=== PATIENT | female | born 1965 | race Caucasian/White ===

== ENCOUNTER 2025-04-10 18:34 | Emergency (ER) | payer BC, SELFPAY ==
--- OUTSIDE RECORDS SUMMARY | 2025-04-10 18:40 | XMS_ITS | Encounter Summary ---
Author Organization [facility] Address [address] [facility] [place] [address] Phone Care Team Providers Care Certified Histologic Technician Name Role Phone Darcie Jacobs PAC Primary Care Pro vider Lawrence Thompson MD Unavailable Reason for Visit * Reason Comments Medication Refill Encounter Details Date Type Department Care Team (Late st Contact Info) Description 12/10/2021 [facility]ill [facility] - [facility] Medicine - [place] [address] [place] [address] Darcie Jacobs, PAC [address] [place] [address] Medication Refill Social History Tobacco Use Types Packs/Day Years Used Date Smoking Tobacco: Former Cigarettes Q uit: 02/11/2008 Smokeless Tobacco: Never Alcohol Use Standard Drinks/Week Comments Yes 0 (1 standard drink = 0.6 oz pur e alcohol) socially PHQ-2 Answer Date Recorded Total Score - Questions 1-9 10 12/2021 Sexually Active Control Partners Comments Yes Comments No Sex and Gender Information Value Date Recorded Sex Assigned at Female 12/12/2023 9:44 AM CDT Legal Sex Female 11:59 PM CDT Gender Identity Female 12/12/2023 9:44 AM CDT Sexual Orientation Not on file COVID-19 Exposure Response Date Recorded In the last 10 days, have gaston u been in contact with someone who was confirmed or suspected to have Coronavirus/COVID-19? No / Unsure 12/12/2021 8:10 AM CDT documented as of this encounter Miscellaneous Notes * Telephone Encounter - VogelHannah RN - 12/12/2021 9:49 AM CDT Medication failed the protocol, provider to review and approve the medication order if appropriate. Requested Prescriptions Pending Prescriptions Disp Refills lisinopril (PRINIVIL, ZESTRIL) 20 MG Tablet [Pharmacy Med Name: Lisinopril 20 MG Oral Tablet] 90 Tablet 0 Sig: Take 1 tablet by mouth once daily NOELLE Inhibitors Protocol Failed - 12/10/2021 5:13 AM Failed - Serum potassium on record in past 12 months No results found for: POTASSIUM, POCTK Failed - GFR on record in past 12 months No results found for: GFRNA Passed - Blood pressure on record in past 12 months Clinician-entered: BP Readings from Last 3 Encounters: 12/12/21 120/70 07/27/21 134/82 06/10/21 124/80 Patient-entered: No data recorded Passed - No positive test in the past 12 months or most recent test was negative Passed - Visit with relevant provider in past 12 months or upcoming 90 days Recent Visits Date Type Provider Dept 07/27/21 Office Visit Darcie Jacobs PAC [facility] [place] 06/10/21 [facility] [place] Showing recent visits within past 365 days and meeting all other requirements Today's Visits Date Type Provider Dept 12/12/21 Office Visit Darcie Jacobs PAC [facility] [place] Showing today's visits and meeting all other requirements Future Appointments No visits were found meeting these conditions. Showing future appointments within next 90 days and meeting all other requirements Passed - No active on record triamterene-hydrochlorothiazide (MAXZIDE) 37.5-25 MG Tablet [Pharmacy Med Name: Triamterene-HCTZ 37.5-25 MG Oral Tablet] 90 Tablet 0 Sig: Take 1 tablet by mouth once daily Diuretics Protocol Failed - 12/10/2021 5:13 AM Failed - Serum potassium on record in past 12 months No results found for: POTASSIUM, POCTK Failed - Serum sodium on record in past 12 months No results found for: SODIUM Failed - GFR on record in past 12 months No results found for: GFRNA Passed - Blood pressure on record in past 12 months Clinician-entered: BP Readings from Last 3 Encounters: 12/12/21 120/70 07/27/21 134/82 06/10/21 124/80 Patient-entered: No data recorded Passed - Visit with relevant provider in past 12 months or upcoming 90 days Recent Visits Date Type Provider Dept 07/27/21 Office Visit Darcie Jacobs, PAC [facility] 06/10/21 Office Visit Darcie Jacobs, PAC [facility] Showing recent visits within past 365 days and meeting all other requirements Today's Visits Date Type Provider Dept 12/12/21 Office Visit Darcie Jacobs, PAC [facility] Showing today's visits and meeting all other requirements Future Appointments No visits were found meeting these conditions. Showing future appointments within next 90 days and meeting all other requirements documented in this encounter Plan of Treatment Upcoming Encounters Date Type Department Care Team (Late st Contact Info) Description 07/15/2025 10:15 AM COOLER ROOM WORKER Office Visit [facility] - Primary Care - [place] [address] [place] [address] Darcie Jacobs, PAC [address] [place] [address] 08/17/2025 11:00 AM COOLER ROOM WORKER Office Visit [facility] - Endocrinology - [place] [address] [place] [phone] Lawrence Thompson MD [address] [phone] documented as of this encounter Visit Diagnoses Not on filedocumented in this encounter Additional Health Concerns Assessment Noted Time PHQ-9 Depression Total Score: 0 12/09/19 21 1:00 PM CDT documented as of this encounter Care Teams Certified Histologic Technician Relationship Specialty Start Date End Date Darcie Jacobs PAC [address] [place] [address] PCP - General Physician Curator Of Education 12/08/20 Lawrence Thompson MD [address] [address] Consulting Physician Endocrinology 11/02/23 documented as of this encounter
--- OUTSIDE RECORDS SUMMARY | 2025-04-10 18:40 | XMS_ITS | Encounter Summary ---
Author Organization [facility] Address [address] [place] [address] Phone Care Team Providers Care Home Security Alarm Installer Name Role Phone Darcie Jacobs PAC Primary Care Pro vider Lawrence Thompson MD Unavailable Reason for Visit * Reason Comments Medication Refill Encounter Details Date Type Department Care Team (Late st Contact Info) Description 06/13/2022 Refill [facility] - [facility] - [place] [address] [place] [address] Beatriz Elias, PAC [address] [place] [address] Medication Refill Social History Tobacco Use Types [...] suspected to have Coronavirus/COVID-19? No / Unsure 06/14/2022 8:09 AM CDT documented as of this encounter Miscellaneous Notes * Telephone Encounter - Sonam Pappas RN - 06/14/2022 8:28 AM CDT Medication failed the protocol, provider to review and approve the medication order if appropriate. Requested Prescriptions Pending Prescriptions Disp Refills triamterene-hydrochlorothiazide (MAXZIDE) 37.5-25 MG Tablet [Pharmacy Med Name: Triamterene-HCTZ 37.5-25 MG Oral Tablet] 90 Tablet 0 Sig: Take 1 tablet by mouth once daily Diuretics Protocol Failed - 06/13/2022 4:42 PM Failed - Serum potassium on record in past 12 months No results found for: POTASSIUM, POCTK Failed - Serum sodium on record in past 12 months No results found for: SODIUM Failed - GFR on record in past 12 months No results found for: GFRNA Passed - Blood pressure on record in past 12 months Clinician-entered: BP Readings from Last 3 Encounters: 06/14/22 104/78 12/12/21 120/70 07/27/21 134/82 Patient-entered: No data recorded Passed - Visit with relevant provider in past 12 months or upcoming 90 days Recent Visits Date Type Provider Dept 12/12/21 Office Visit Darcie Jacobs PAC [facility] [place] 07/27/21 [facility] [place] Showing recent visits within past 365 days and meeting all other requirements Today's Visits Date Type Provider Dept 06/14/22 Office Visit Darcie Jacobs PAC [facility] [place] Showing today's visits and meeting all other requirements Future Appointments No visits were found meeting these conditions. Showing future appointments within next 90 days and meeting all other requirements documented in this encounter Plan of Treatment Upcoming Encounters Date Type Department Care Team (Late st Contact Info) Description 07/15/2025 10:15 AM CONTRACT ADMIN Office Visit [facility] - Primary Care - [place] [address] [place] [phone] Darcie Jacobs, PAC [address] [place] [address] 08/17/2025 11:00 AM CONTRACT ADMIN Office Visit [facility] - Endocrinology - [place] [address] [place] [phone] Lawrence Thompson MD [address] [phone] documented as of this encounter Visit Diagnoses Not on filedocumented in this encounter Additional Health Concerns Assessment Noted Time PHQ-9 Depression Total Score: 10 022 8:00 AM CDT documented as of this encounter Care Teams Home Security Alarm Installer Relationship Specialty Start Date End Date Darcie Jacobs, PAC [address] [place] [address] PCP - General Physician Convict Guard 12/08/20 Lawrence Thompson MD [address] [phone] Consulting Physician Endocrinology 11/02/23 documented as of this encounter
--- OUTSIDE RECORDS SUMMARY | 2025-04-10 18:40 | XMS_ITS | Encounter Summary ---
Author Organization [facility] Address [address] [facility] [place] [address] Phone Care Team Providers Care Corporate Travel Manager Name Role Phone Darcie Jacobs PAC Primary Care Pro vider Lawrence Thompson MD Unavailable Reason for Visit * Reason Comments Medication Refill Encounter Details Date Type Department Care Team (Late st Contact Info) Description 06/12/2022 Refill [facility] - [place] [address] [place] [address] Beatriz Elias, PAC [address] [place] [address] Medication Refill Social History Tobacco Use Types [...] Telephone Encounter - Sonam Pappas RN - 06/12/2022 2:35 PM CDT Medication failed the protocol, provider to review and approve the medication order if appropriate. Requested Prescriptions Pending Prescriptions Disp Refills lisinopril (PRINIVIL, ZESTRIL) 20 MG Tablet [Pharmacy Med Name: Lisinopril 20 MG Oral Tablet] 90 Tablet 0 Sig: Take 1 tablet by mouth once daily NOELLE Inhibitors Protocol Failed - 06/12/2022 5:35 AM Failed - Serum potassium on record [...] Provider Dept 12/12/21 Office Visit Darcie Jacobs, LAURA [facility] [place] 07/27/21 Office Visit Darcie Jacobs, PAC [facility] [place] Showing recent visits within past 365 days and meeting all other requirements Future Appointments Date Type Provider Dept 06/14/22 Appointment Darcie Jacobs, PAC [facility] [place] Showing future appointments within next 90 days and meeting all other requirements Passed - No active on record documented in this encounter Plan of Treatment Upcoming Encounters Date Type Department Care Team (Late st Contact Info) Description 07/15/2025 10:15 AM MVA OPERATOR Office Visit [facility] - Primary Care - [place] [address] [place] [address] Darcie Jacobs, PAC [address] [place] [address] 08/17/2025 11:00 AM MVA OPERATOR [facility] - Endocrinology - [place] [address] [place] [address] Lawrence Thompson MD [address] [address] documented as of this encounter Visit Diagnoses Not on filedocumented in this encounter Additional Health Concerns Assessment Noted Time PHQ-9 Depression Total Score: 10 022 8:00 AM CDT documented as of this encounter Care Teams Corporate Travel Manager Relationship Specialty Start Date End Date Darcie Jacobs, PAC [address] [place] [address] PCP - General Physician Skate Hop 12/08/20 Lawrence Thompson MD [address] [phone] Consulting Physician Endocrinology 11/02/23 documented as of this encounter
--- NOTE | 2025-04-10 18:41 | ED_ITS ---
HPI - Female Genitourinary General Chief complaint: Urogenital-Female Stated complaint: Poss UTI Time Seen by Provider: 04/10/25 18:42 Source: patient and RN notes reviewed Mode of arrival: ambulatory Limitations: no limitations History of Present Illness HPI Narrative: 59-year-old female history of diabetes presented for complaint of burning with urination, frequency and urgency. Onset this morning. Endorses chills today. Denies hematuria, nausea, vomiting, abdominal pain, flank pain, constipation, diarrhea, fevers. Related Data Home Medications ?Medication ?Instructions ?Recorded ?Confirmed ?Last Taken ?Type atorvastatin 40 mg tablet mg 04/10/25 Unknown History empagliflozin 25 mg tablet mg 04/10/25 Unknown History (Jardiance) linaclotide 290 mcg capsule mcg 04/10/25 Unknown History (Linzess) omeprazole 40 mg capsule,delayed mg 04/10/25 Unknown History release Allergies Allergy/AdvReac Type Severity Reaction Status Date / Time Sulfa (Sulfonamide Allergy Redness of Verified 04/10/25 18:53 Antibiotics) Skin Review of Systems Review of Systems: CONSTITUTIONAL: Denies body aches, fever, chills, or sweats. CARDIOVASCULAR: Denies chest pain, palpitations, or edema. RESPIRATORY: Denies cough or dyspnea. GASTROINTESTINAL: Denies abdominal pain, nausea, vomiting, or diarrhea. GENITOURINARY: Reports dysuria, frequency, urgency, denies hematuria, flank pain, discharge SKIN: Denies rash, itching, or wounds. MUSCULOSKELETAL: Denies back pain or myalgia. [facility] Past Medical History Medical History (Updated 04/10/25 @ 19:00 by Heather Coppola, CHARLEE) Diabetes Comments At time of signature, I have reviewed and agree with nursing past medical, surgical, social and family history unless otherwise noted. Please see nursing chart for further information. There is no relevant family history pertinent to the presenting complaint Exam Narrative: GENERAL: Well-appearing and in no acute distress. ENT: Mucous membranes pink and moist. NECK: Normal AROM. Supple. CHEST: No respiratory distress. Clear to auscultation. HEART: Regular rate and rhythm. ABDOMEN: Soft, suprapubic tenderness, nondistended, normal active bowel sounds. No CVA tenderness SKIN: Warm, dry, no rash. NEURO: No focal deficits. Alert and oriented x3. Gait steady. PSYCH: Normal affect. Course Course Emergency Course: Patient is aware of diagnosis, understands and agrees to treatment plan. Anticipatory guidance given. Patient agrees to follow-up as directed and is aware of reasons to seek care at the emergency department. Portions of this record may have been created with voice recognition software Level of Care: Express Care Visit Vital Signs Vital signs: Reviewed MDM - Female Genitourinary MDM Narrative Medical decision making narrative: Discussed physical exam findings and urine dip. Will culture. Rx macrobid. Advised supportive measures and signs/symptoms to go to the ER. Pt is appropriate for outpt treatment and f/u. Discharge Plan Discharge Clinical Impression: Urinary tract infection Patient Disposition: Home Condition: Stable Instructions: Antibiotic Form, Urinary Tract Infection in Women (ED) Additional Instructions: Take the antibiotic as prescribed The urine will be sent of for a culture to identify what type of bacteria is causing your infection. If the culture shows that the antibiotic will not get rid of your infection, you will be notified and a new antibiotic will be called in for you. Increase water intake you will need to follow up with your PCP, call to schedule an appointment. Go to the ER for any worsening symptoms or concerns Patient Language: Ecuadorean Prescriptions: New nitrofurantoin monohyd/m-cryst [Macrobid] 100 mg capsule 100 mg PO Q12H 5 Days Qty: 10 0RF Rx Instructions: must administer with a meal/food phenazopyridine [Pyridium] 200 mg tablet 200 mg PO TID 2 Days Qty: 6 0RF No Action atorvastatin 40 mg tablet omeprazole 40 mg capsule,delayed release(DR/EC) Linzess 290 mcg capsule Jardiance 25 mg tablet Follow-up/Referrals: Arlene,CARRI Sprague [Primary Care Provider] - Time of Disposition: 18:58
--- OUTSIDE RECORDS SUMMARY | 2025-04-10 18:41 | XMS_ITS | Encounter Summary ---
Author Organization [facility] Address [address] [place] [address] Phone Care Team Providers Care Per Diem Interpreter Name Role Phone Darcie Jacobs PAC Primary Care Pro vider Lawrence Thompson MD Unavailable Reason for Visit * Reason Comments Medication Refill Encounter Details Date Type Department Care Team (Late st Contact Info) Description 06/11/2024 Refill [facility] - Internal Medicine - [place] [address] [place] [address] Darcie Jacobs, PAC [address] [place] [address] Medication Refill Social History Tobacco Use Types Packs/Day Years Used Date Smoking Tobacco: Former Cigarettes Q uit: 02/11/2008 Smokeless Tobacco: Never Alcohol Use Standard Drinks/Week Comments Yes 0 (1 standard drink = 0.6 oz pur e alcohol) socially [employer] Utilities Answer Date Recorded In the past 12 months has [employer], gas, oil, or water [employer] threatened to shut off services in your home? No 12/13/2023 Social Connection and Isolation Panel Answer Date Recorded In a typical week, how many times do you talk on the phone with family, friends, or neighbors? Once a week 12/13/2023 How often do you get togethe r with friends or relatives? Patient declined 12/13/2023 How often do you attend chur or mandaen services? More than 4 times per year 12/13/2023 Do you belong to any clubs o r organizations such as amish groups, unions, fraternal or athletic groups, or school groups? No 12/13/2023 How often do you attend meet ings of the clubs or organizations you belong to? Never 12/13/2023 Are you , , di vorced, , never , or living with a partner? 12/13/2023 AUDIT-C Answer Date Recorded Q1: How often do you have a drink containing alc ohol? Monthly or less 12/13/2023 Q2: How many drinks containi ng alcohol do you have on a typical day when you are drinking? 1 or 2 12/13/2023 Q3: How often do you have si x or more drinks on one occasion? Never 12/13/2023 Overall Financial Resource Strain (CARDIA) Answe r Date Recorded How hard is it for you to pa y for the very basics like food, housing, medical care, and heating? Not very hard 12/13/2023 PHQ-2 Answer Date Recorded Total Score - Questions 1-9 10 12/2021 [facility] - Occupational Stress Questionnaire Answer Date Recorded Do you feel stress - tense, restless, nervous, or anxious, or unable to sleep at night because your mind is troubled all the time - these days? Not at all 12/13/2023 Exercise Vital Sign Answer Date Recorde d On average, how many days pe r week do you engage in moderate to strenuous exercise (like a brisk walk)? 0 days 12/13/2023 On average, how many minutes do you engage in exercise at this level? 10 min 12/13/2023 Hunger Vital Sign Answer Date Recorded Within the past 12 months, y ou worried that your food would run out before you got the money to buy more. Never true 12/13/19 24 Within the past 12 months, t he food you bought just didn't last and you didn't have money to get more. Never true 12/13/2023 PRAPARE - Transportation Answer Date Re corded In the past 12 months, has l ack of transportation kept you from medical appointments or from getting medications? No 12/2023 In the past 12 months, has l ack of transportation kept you from meetings, work, or from getting things needed for daily living? No 12/13/2023 Housing Stability Vital Sign Answer Gregorio e Recorded In the last 12 months, was t here a time when you were not able to pay the mortgage or rent on time? No 12/13/2023 In the last 12 months, how many places have you lived? 1 12/13/2023 In the last 12 months, was t here a time when you did not have a steady place to sleep or slept in a fci (including now)? No 12/13/2023 Education Answer Date Recorded What is the highest level of school you have completed or the highest degree you have received? 12th grade 12/13/2022 Sexually Active Control Partners Comments Yes Comments No Sex and Gender Information Value Date Recorded Sex Assigned at Female 12/12/2023 9:44 AM CDT Legal Sex Female 11:59 PM CDT Gender Identity Female 12/12/2023 9:44 AM CDT Sexual Orientation Not on file documented as of this encounter Plan of Treatment Upcoming Encounters Date Type Department Care Team (Late st Contact Info) Description 07/15/2025 10:15 AM INSTRUMENT TECHNICIAN APPRENTICE Office Visit [facility] - Primary Care - [place] [address] [place] [phone] Darcie Jacobs, PAC [address] [place] [address] 08/17/2025 11:00 AM INSTRUMENT TECHNICIAN APPRENTICE Office [facility] - Endocrinology - [place] [address] [place] [phone] Lawrence Thompson MD [address] [phone] documented as of this encounter Visit Diagnoses Not on filedocumented in this encounter Additional Health Concerns Assessment Noted Time PHQ-9 Depression Total Score: 10 022 8:00 AM CDT documented as of this encounter Care Teams Per Diem Interpreter Relationship Specialty Start Date End Date Darcie Jacobs, LAURA [address] [place] [address] PCP - General Physician Repairer General 12/08/20 Lawrence Thompson MD [address] [phone] Consulting Physician Endocrinology 11/02/23 documented as of this encounter
--- OUTSIDE RECORDS SUMMARY | 2025-04-10 18:41 | XMS_ITS | Encounter Summary ---
Author Organization [facility] Address [address] [facility] [place] [address] Phone Care Team Providers Care Paper Machine Backtender Name Role Phone Darcie Jacobs PAC Primary Care Pro vider Lawrence Thompson MD Unavailable Reason for Visit * Reason Comments Medication Refill Encounter Details Date Type Department Care Team (Late st Contact Info) Description 09/17/2022 Refill [facility] - Internal Medicine - [place] [address] [place] [address] Darcie Jacobs, PAC [address] [facility] [place] [address] Medication Refill Social History Tobacco Use Types [...] on file documented as of this encounter Miscellaneous Notes * Telephone Encounter - Hannah Vogel RN - 09/18/2022 9:04 AM CST Medication failed the protocol, provider to review and approve the medication order if appropriate. Requested Prescriptions Pending Prescriptions Disp Refills triamterene-hydrochlorothiazide (MAXZIDE) 37.5-25 MG Tablet [Pharmacy Med Name: Triamterene-HCTZ 37.5-25 MG Oral Tablet] 90 Tablet 0 Sig: Take 1 tablet by mouth once daily Diuretics Protocol Failed - 09/17/2022 11:11 AM Failed - Serum potassium on record [...] days Recent Visits Date Type Provider Dept 06/14/22 Office Visit Darcie Jacobs PAC [facility] [place] 12/12/21 Office Visit Darcie Jacobs PAC [facility] [place] Showing recent visits within past 365 days and meeting all other requirements Future Appointments Date Type Provider Dept 12/13/22 Appointment Darcie Jacobs PAC [facility] [place] Showing future appointments within next 90 days and meeting all other requirements lisinopril (PRINIVIL, ZESTRIL) 20 MG Tablet [Pharmacy Med Name: Lisinopril 20 MG Oral Tablet] 90 Tablet 0 Sig: Take 1 tablet by mouth once daily NOELLE Inhibitors Protocol Failed - 09/17/2022 11:11 AM Failed - Serum potassium on record in past 12 months No results found for: POTASSIUM, POCTK Failed - GFR on record in past 12 months No results found for: GFRNA Passed - Blood pressure on record in past 12 months Clinician-entered: BP Readings from Last 3 Encounters: 06/14/22 104/78 12/12/21 120/70 07/27/21 134/82 Patient-entered: No data recorded Passed - No positive test in the past 12 months or most recent test was negative Passed - Visit with relevant provider in past 12 months or upcoming 90 days Recent Visits Date Type Provider Dept 06/14/22 Office Visit Darcie Jacobs PAC [facility] [place] 12/12/21 Office Visit Darcie Jacobs PAC [facility] [place] Showing recent visits within past 365 days and meeting all other requirements Future Appointments Date Type Provider Dept 12/13/22 Appointment Darcie Jacobs PAC [facility] [place] Showing future appointments within next 90 days and meeting all other requirements Passed - No active on record FING RECRUITER documented in this encounter Plan of Treatment Upcoming Encounters Date Type Department Care Team (Late st Contact Info) Description 07/15/2025 10:15 AM STAFFING RECRUITER Office Visit [facility] - Primary Care - [address] [address] Darcie Jacobs PAC [address] [place] [address] 08/17/2025 11:00 AM STAFFING RECRUITER Office Visit [facility] - Endocrinology - [place] [address] [place] [phone] Lawrence Thompson MD [address] [phone] documented as of this encounter Visit Diagnoses Not on filedocumented in this encounter Additional Health Concerns Assessment Noted Time PHQ-9 Depression Total Score: 10 022 8:00 AM CDT documented as of this encounter Care Teams Paper Machine Backtender Relationship Specialty Start Date End Date Darcie Jacobs PAC [address] [place] [address] PCP - General Physician Feather Separator 12/08/20 Lawrence Thompson MD [address] [address] Consulting Physician Endocrinology 11/02/23 documented as of this encounter
--- OUTSIDE RECORDS SUMMARY | 2025-04-10 18:41 | XMS_ITS | Clinical Summary ---
Author Organization [facility] Address [address] [address] Care Team Providers Care Storage Center Manager Name Role Phone Darcie Jacobs Primary Care Prov ider Allergies Active Allergy Reactions Criticality Noted Date Comments Sulfa (Sulfonamide Antibiotics) Rash Medium Sulfanilamide Rash Medium Medications atorvastatin (LIPITOR) 40 mg tablet Take 1 tablet (40 mg total) by mouth daily Active jgonucmibona-Xx-j ginny-minerals 18-0.4 mg tablet Take 1 tablet by mouth nightly Active empagliflozin (JARDIANCE) 25 mg tabletIndications :type 2 diabetes mellitus Take 1 tablet (25 mg total) by mouth daily Active alpha lipoic acid 600 mg capsule Alpha-Lipoic Acid 600 MG Oral Capsule QTY: 0 capsule Days: 0 Refills: 0 Written: 03/14/18 Patient Instructions: 800 mg daily 8 Active triamterene-hydro CHLOROthiazide (MAXZIDE,DYAZIDE) 37.5-25 mg per tablet/capsule Take 1 tablet/capsule by mouth daily 90 tablet 3 0 Active lisinopriL (PRINIVIL,ZESTRIL ) 20 mg tablet Take 1 tablet (20 mg total) by mouth daily 90 tablet 3 0 Active cholecalciferol (VITAMIN D-3) 5,000 unit capsule Take 1 capsule (5,000 Units total) by mouth daily Active ascorbic acid (VITAMIN C) 500 mg tablet,chewable Take three times a week Active aspirin 81 mg enteric coated tablet Take 1 tablet (81 mg total) by mouth daily Active ursodioL (LIANET FORTE) 500 mg tablet Take 3 tablets (1,500 mg total) by mouth daily 90 tablet 11 4 Active nystatin cream Apply topically 2 (two) times a day To umbilical area 30 g 4 06/09/20 25 Active linaCLOtide (Linzess) 290 mcg capsuleIndication s:Irritable bowel syndrome with constipation Take 1 capsule (290 mcg total) by mouth daily 90 capsule 3 5 Active omeprazole (PriLOSEC) 40 mg capsuleIndication s:Gastroesophagea l reflux disease Take 1 capsule (40 mg total) by mouth daily 90 capsule 3 5 Active tirzepatide (Mounjaro) 7.5 mg/0.5 mL pen injector injection Inject under the skin once a week Active Active Problems Problem Noted Date Diagnosed Date Melena 06/05/2023 Neck mass 04/16/2023 Assessment & Plan (04/16/2023 9:19 AM CDT): Personal interpretation of CT Neck: no masses, lesions or tumors, small normal appearing lymph nodes No lymph node enlargement or masses, suspect change in fat distribution due to hormone changes Uterine leiomyoma 09/06/2022 Iron deficiency anemia 06/15/2022 Overview (06/15/2022): Added automatically from request for surgery [id number] Palpitations 06/07/2020 Assessment & Plan (06/07/2020 9:21 AM CDT): Possible arrhythmia, anemia, anxiety TSH, CBC, iron profile, EKG Referred to sleep med for evaluation of MORIS as possible contributor Holter monitor ordered Fatigue 06/07/2020 Assessment & Plan (06/07/2020 9:21 AM CDT): Referred to sleep med for evaluation of MORIS TSH, CBC, EKG BMI 37.0-37.9, adult 06/05/2019 Overview (06/05/2019): BMI Follow-up includes: nutrition counseling, exercise counseling and education provided. Assessment & Plan (06/07/2020 8:36 AM CDT): BMI Follow-up includes: nutrition counseling, exercise counseling and education provided. Assessment & Plan (12/05/2019 8:27 AM CDT): BMI Follow-up includes: nutrition counseling, exercise counseling and education provided. Anxiety 06/13/2018 Assessment & Plan (06/07/2020 9:19 AM CDT): Patient would like to avoid additional medications Recommended counseling Assessment & Plan (06/25/2018 8:32 AM CDT): States that she is stable on her low-dose alprazolam we are going to monitor this closely at this point Morbid obesity 04/15/2018 Assessment & Plan (06/25/2018 8:32 AM CDT): Continue encourage diet exercise weight loss Gastroesophageal reflux disease 08/13/2017 Assessment & Plan (06/07/2020 9:20 AM CDT): Continue omeprazole 40 daily Assessment & Plan (12/05/2019 12:58 PM CDT): Continue omeprazole 40 daily EGD 11/2018 with gastritis, no Roland's Follows with Dr. Cast Assessment & Plan (06/25/2018 8:32 AM CDT): Stable on current regimen Assessment & Plan (12/11/2017 6:04 PM CDT): 1. Continue omeprazole 40 mg and ranitidine 150 mg once daily. Continue GERD diet and weight loss efforts. 2. Mg, B12, BUN, creatinine currently then every 6 months. Assessment & Plan (08/13/2017 9:13 AM HEALTH CARE MARKETING MANAGER): 1.Continue omeprazole 40 mg once daily. Add ranitidine 150-300 mg daily. Call office in 2-3 weeks regarding symptoms. If no significant improvement, consider repeat EGD +/- motility/pH study. 2. Mg, B12, BUN, creatinine currently then every 6 months. Irritable bowel syndrome with constipation 08/13 Overview (08/13/2017): Suspected Assessment & Plan (06/07/2020 9:19 AM CDT): On Linzess Follow up with GI Assessment & Plan (12/05/2019 12:59 PM CDT): Follows with Dr. Cast On Linzess Assessment & Plan (12/12/2017 9:21 AM CDT): States she is doing very well on Linzess 290 Assessment & Plan (12/11/2017 6:04 PM CDT): 1. Continue Linzess 290 mcg daily. Assessment & Plan (08/13/2017 9:14 AM HEALTH CARE MARKETING MANAGER): 1. Trial of Linzess 290 mcg once daily. Instructed patient to call office in 1 week regarding symptoms. 2. Consider lactulose breath testing. Gastric polyp 11/08/2016 Internal hemorrhoids with complication 5 External hemorrhoids 02/25/2015 Hypertension 01/24/2014 Overview (12/16/2016): High blood pressure Assessment & Plan (06/07/2020 9:21 AM CDT): BP acceptable Continue current regimen Follow up 6 months Assessment & Plan (12/05/2019 12:59 PM CDT): BP well controlled Continue HCTZ-triamterene 37.5-25 and Lisinopril 20 Assessment & Plan (06/05/2019 9:17 AM CDT): Controlled on current regimen Assessment & Plan (06/25/2018 8:31 AM CDT): Hypertension is improving with treatment. Weight loss. Blood pressure will be reassessed in 3 months. Assessment & Plan (12/12/2017 9:21 AM CDT): Well controlled at this time Assessment & Plan (06/07/2017 8:37 AM CDT): Hypertension is improving with treatment. Continue current treatment regimen. Blood pressure will be reassessed in 3 months. Atopic rhinitis 01/24/2014 Overview (12/16/2016): ALLERGIC RHINITIS NOS Type 2 diabetes mellitus 03/21/2013 Overview (12/15/2016): DMII NEURO UNCNTRLD Assessment & Plan (06/07/2020 9:19 AM CDT): A1c today Urine micral/cr today Foot exam today without neuropathy Eye exam due September 2020 Continue current regimen Encouraged to schedule follow up with Dr. Shields Assessment & Plan (12/05/2019 1:00 PM CDT): Follows with Dr. Shields q3mo Continue Janumet and Jardiance On statin Eye exam in October - she will try to get records for us Assessment & Plan (06/05/2019 9:17 AM CDT): Follows with Dr. Shields last A1c 7.1 she is doing excellent currently she will see him next month Assessment & Plan (06/25/2018 8:31 AM CDT): Diabetes is unchanged. Dietary recommendations for ADA diet. Diabetes will be reassessed in 6 months. Assessment & Plan (04/15/2018 8:23 PM CDT): Diabetes is unchanged. Continue current treatment regimen. Diabetes will be reassessed in 3 months. Assessment & Plan (12/12/2017 9:21 AM CDT): Diabetic control has been good with review of patient's last a1c, I have reviewed and addressed all of the other diabetic benchmarks including the diabetic eye exam, foot exam, renal protection, reaching LDL goal of <100. Will make adjustments as needed to current regimen. She follows with Dr. Tay Shields last A1c of 7.1 stable at this time we will check a urine microalbumin today Assessment & Plan (06/07/2017 8:37 AM CDT): Diabetic control has been good with review of patient's last a1c, I have reviewed and addressed all of the other diabetic benchmarks including the diabetic eye exam, foot exam, renal protection, reaching LDL goal of <100. Will make adjustments as needed to current regimen. Last a1c 6.[address] SHIELDS Resolved Problems Problem Noted Date Diagnosed Date Resolved Date Menorrhagia with irregular cycle 05/12/2022 06/09/2024 Assessment & Plan (05/12/2022 2:23 PM CDT): Will check FSH level and pelvic ultrasound. Medical treatment with mIUD vs surgical treatment discussed. Ultimately, will consult MD prior to initiating treatment for bleeding after pelvic sono and labs reviewed. URI, acute 08/19/2019 12/05/2019 Assessment & Plan (08/19/2019 11:45 AM HEALTH CARE MARKETING MANAGER): We discussed today. It sounds like the patient has an upper respiratory infection which is worsening. I recomended increased oral fluid intake. I will institute antibiotics and monitor as clinical course dictates. Begin james Sore throat 12/03/2018 12/05/2019 Assessment & Plan (01/09/2019 11:54 AM CDT): Rapid strep negative. I suspect this is acid reflux causing dysphagia. She should continue her omeprazole 40 mg and her Zantac. I have asked patient elevate the head of the bed 30 . If no improvement she is to consult with ENT. Patient verbalizes understanding. Assessment & Plan (12/03/2018 9:26 AM CDT): She has had a ST for a week, We discussed today. It sounds like the patient has an upper respiratory infection which is worsening. I recomended increased oral fluid intake. I will institute antibiotics and monitor as clinical course dictates. Begin lissethtyresejennifer Melena 11/12/2018 12/05/2019 Overview (11/12/2018): Added automatically from request for surgery [id number] BMI 34.0-34.9,adult 07/16/2018 01/10/20 19 Assessment & Plan (12/03/2018 9:06 AM CDT): BMI Follow-up includes: nutrition counseling, exercise counseling and education provided. Assessment & Plan (07/16/2018 10:52 AM HEALTH CARE MARKETING MANAGER): BMI Follow-up includes: nutrition counseling, exercise counseling and education provided. Other chest pain 07/16/2018 12/05/2019 Assessment & Plan (07/16/2018 11:13 AM HEALTH CARE MARKETING MANAGER): Patient states she had called our office yesterday and was told to go to the emergency room. She ended up at [place] for chest pain back pain shortness of breath. She states she had a chest x-ray, EKG and troponins all which were negative I will get these reports she was recommended she get a stress test. She states that the chest pain is better she has been taking aspirin due to started on a the same an order a stress echocardiogram EDUARDO We did review her other risk factors diabetes under good control blood pressure is excellent cholesterol is fine with an LDL of 90 Facial rash 06/13/2018 06/06/2020 Assessment & Plan (06/25/2018 8:32 AM CDT): We discussed this today she continues on Metrogel for her rosacea Burning with urination 04/15/201812/04 Other signs and symptoms in breast (CODE) 04/15/2018 04/15/2018 Acute cystitis with hematuria 04/15/2018 12/05/2019 Assessment & Plan (04/15/2018 8:21 PM CDT): Culture sent Macrobid bid for 7 days Drink plenty of fluids. Altered bowel habits 12/11/2017 020 Assessment & Plan (12/11/2017 6:02 PM CDT): 1. Trial of Citrucel or Benefiber 1 tbsp daily. Instructed to call office in 10- 14 days regarding response. 2. If symptoms recur, consider diagnostic colonoscopy. Rectal hemorrhage 10/11/2015 12/05/2019 Tarry stools 10/11/2015 12/05/2019 Hyperprolactinemia 03/21/2013 0 Overview (12/14/2016): Hyperprolactinemia Assessment & Plan (06/07/2017 8:39 AM CDT): No current complaints stable at this time Immunizations Immunization Administration Dates Next Due Influenza, Unspecified 08/19/2019(Deferr ed: Patient Refused),06/13/2018(Deferred: Patient Refused),09/10/2017(Deferred: Patient Refused),06/13/2017(Deferred: Patient Refused),06/07/2017(Deferred: Patient Refused),06/29/2016(Deferred: Patient Refused) TD Preservative Free 04/21/2011 Td, adsorbed 09/10/2000 Tdap 05/05/2011 Surgical History Surgery Date Site/Laterality Comments BREAST BIOPSY 09/10/1996 - 09/09/1997 APPENDECTOMY 09/10/1977 - 09/09/1978 CHOLECYSTECTOMY 09/10/2006 - 09/09/2007 OTHER SURGICAL HISTORY nasal sept ESOPHAGOGASTRODUODENOSCOPY COLONOSCOPY polypectomy-2021 ROTATOR CUFF REPAIR 09/10/2015 - 09/09/2016 Right US GUIDED BIOPSY LIVER 11/09/2021 N/A Medical History Medical History Date Comments Holcomb's palsy Migraines Depression Hypertension 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 Diabetes mellitus (HCC) Autoimmune liver disease PBC Family History Medical History Relation Name Comments Other Brother 1 Richard [place] with stent; Other Brother 2 Gil alive and well; Coronary artery disease Brother 3 Alexis nary artery disease; Colon polyps Father Colon polyps; Heart attack Father Other Father CAD with [place]; Colon cancer Father's Sister 2 Cancer, co olivia; Colon cancer Mother Coronary artery disease Mother Alexis nary artery disease; Heart attack Mother [place]; Cause of De ath: [place] Hypertension Mother Hypertension; Other Mother Cancer - Fallop genet tubes; Uterine cancer Mother's Sister Cancer, ut erine; uterine ca Mother's Sister Heart disease Other 1 Family history of Heart disease; Colon cancer Other 2 Family history of Cancer, colon; Other Other 3 Family history of Cancer, thyroid; Other Other 4 No family histo ry of Celiac disease; Other Other 5 No family histo ry of Crohn's disease; Other Other 6 No family histo ry of Ulcerative colitis; Other Sister Moraima alive and well; Other Son 1 Reese alive and well; Other Son 2 Yo alive and well; Relation Name Status Comments Brother 1 Richard Alive Brother 2 Gil Alive Brother 3 Father Alive Father's Sister 1 Alive Father's Sister 2 Mother (Age 48) Mother's Sister Other 1 Other 2 Other 3 Other 4 Other 5 Other 6 Sister Moraima Alive Son 1 Reese Alive Son 2 Yo Alive Social History Tobacco Use Types Packs/Day Years Used Date Smoking Tobacco: Former Cigarettes 1 2007 Smokeless Tobacco: Never Tobacco Cessation:Counseling Given: Not Answered Alcohol Use Standard Drinks/Week Comments Yes 0 (1 standard drink = 0.6 oz pur e alcohol) Rarely AUDIT-C Answer Date Recorded Q1: How often do you have a drink containing alc ohol? 2-4 times a month 10/07/2024 Q2: How many drinks containi ng alcohol do you have on a typical day when you are drinking? 1 or 2 10/07/2024 Q3: How often do you have si x or more drinks on one occasion? Never 10/07/2024 PHQ-2 Answer Date Recorded PHQ-2 Total Score (If total score is 3 or more points, staff should administer the PHQ-9) 0 06/09/2024 Personal Safety Answer Date Recorded Have you ever been in or are you currently in a harmful physical or emotional relationship or is someone making you feel afraid or unsafe? 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 Not on file Not on file Not on file Obstetrics History Para Term AB IAB SAB Ectopic Multiple Livin g Live Births 2 2 2 2 2 Date Outcome GA Total Labor Labor/2nd/3rd Weight Sex Type Anes PTL Becki A1 A5 Name Clin 6 Term 3.459 kg (7 lb 10 oz) M Vag-S pont Living 1 Term 4.082 kg (9 lb) M Vag-S pont Living Last Filed Vital Signs Vital Sign Reading Time Taken Comments Blood Pressure 106/73 10/23/2024 9:45 AM HEALTH CARE MARKETING MANAGER Pulse 82 10/23/2024 9:45 AM HEALTH CARE MARKETING MANAGER Temperature 36.2 C (97.2 F) 10/23/2024 9:45 AM HEALTH CARE MARKETING MANAGER Respiratory Rate 18 06/07/2023 3:45 PM CDT Oxygen Saturation 93% 06/07/2023 3:45 PM CDT Inhaled Oxygen Concentration - - Weight 67.7 kg (149 lb 3.2 oz) 10/23/2024 9:45 A M HEALTH CARE MARKETING MANAGER Height 160 cm (5' 3) 10/23/2024 9:45 AM HEALTH CARE MARKETING MANAGER Body Mass Index 26.43 10/23/2024 9:45 AM HEALTH CARE MARKETING MANAGER Plan of Treatment Health Maintenance Due Date Last Done Comments Hepatitis B Screening 1985 Pneumococcal vaccine <65 (1 of 2 - PCV) 1986 Zoster Vaccine (1 of 2) 2017 Dilated Eye Exam 11/06/2019 11/06/2018, 12/2017, 09/12/2017, Additional history exists Foot Exam 06/05/2020 06/05/2019, 02/2018, 04/15/2018, Additional history exists Hemoglobin A1C 12/05/2020 06/07/2020, 05/12, 05/14/2018, Additional history exists DTaP/Tdap/Td Vaccine (2 - Td or Tdap) 05/05/2021 05/05/2011, 04/21/2011, 09/10/2000 Albumin Creatinine Ratio, Urine 06/07/2021 0 Covid-19 Vaccine (5 - 2023-2 5 season) 2024 05/24/2022, 09/19/2021, 02/08/2021, Additional history exists eGFR 11/12/2024 11/13/2023, 08/10, 05/13/2022, Additional history exists Influenza Vaccine (#1) 2025 Cervical Cancer Screening 06/09/2025 06/09/2024, 10/2021 Depression Screening 06/09/2025 06/09/2024, 05/12/2022, 06/07/2020, Additional history exists Regular Well Visit/Exam 18-64 06/09/2025, 05/15/2023, 05/12/2022, Additional history exists Breast Cancer Screening-Mammogram 10/15/2025 10/15/2024, 10/15/2024, 10/15/2024, Additional history exists Lipid Panel 10/15/2025 10/15/2024, 04/0 01/2023, 06/07/2020, Additional history exists Colon Cancer Screening-Colonoscopy 07/28/2032 07/28/2022, 10/20/2015, 06/07/2015 Hepatitis C Screening Completed 06/11/2021 Colon Cancer Screening-CT Colonography Discontinued 07/28/2022, 10/20/2015, 06/07/2015 Colon Cancer Screening-DNA Stool Discontinued 07/28/2022, 10/20/2015, 06/07/2015 Colon Cancer Screening-Sigmoidoscopy Discontinued 07/28/2022, 10/20/2015, 06/07/2015 Colon Cancer Screening-FIT Discontinued 06/07, 07/28/2022, 01/26/2018, Additional history exists Procedures Procedure Name Priority Date/Time Associated Diagnosis Comments SCREENING MAMMOGRAM BILATERAL W WILBER Schedule Routine, Read Routine (OP Routine) 10/15/2024 2:31 PM HEALTH CARE MARKETING MANAGER PAP, REFLEX HPV Routine 06/09/2024 3:43 PM CDT Well woman exam COMPREHENSIVE METABOLIC PANEL Routine 11/13/2023 9:48 AM HEALTH CARE MARKETING MANAGER Primary biliary cholangitis (HCC) FIT OCCULT BLOOD, FECAL Routine 06/07/2023 12:00 AM CDT Melena COLONOSCOPY 07/28/2022 12:20 PM HEALTH CARE MARKETING MANAGER HEPATITIS C ANTIBODY Routine 06/11/2021 7:18 AM CDT Elevated liver function tests ALBUMIN CREATININE RATIO, URINE Routine 06/07/2020 9:36 AM CDT Type 2 diabetes mellitus (HCC) HEMOGLOBIN A1C Routine 06/07/2020 9:25 AM CDT Type 2 diabetes mellitus (HCC) LIPID PANEL Routine 06/07/2020 9:25 AM CDT Type 2 diabetes mellitus (HCC) DIABETES FOOT EXAM Routine 06/05/2019 DIABETES EYE EXAM Routine 11/06/2018 from Last 3 Months or Most Recently Relevant to Health Maintenance Results * Screening Mammogram Bilateral W Wilber (10/15/2024 2:31 PM HEALTH CARE MARKETING MANAGER) Anatomical Region Laterality Modality Breast Bilateral Mammography us Historical Provider MD WAY MAMMO PROCEDURES Madeline l Result * Pap, reflex HPV (06/09/2024 3:43 PM CDT) Clinical indication Comment [facility] - 01 Comment: NEGATIVE FOR INTRAEPITHELIAL LESION OR MALIGNANCY. THIS SPECIMEN WAS RESCREENED PART OF OUR MANAGER PUBLIC PROGRAM. Specimen adequacy: Comment [facility] - 01 Comment: Satisfactory for evaluation. Endocervical and/or squamous metaplastic cells (endocervical component) are present. Clinician provided ICD10 Comment [facility] - 01 Comment:Z01.419 Performed by Comment [facility] - 01 Comment:Christine Stanley, Cytotec hnologist (ASCP) QC reviewed by Comment [facility] - 01 Comment:Saira Florian, Cytot echnologist (ASCP) . . [facility] - 01 Note: Comment [facility] - 01 Comment: The Pap smear is a screening test designed to aid in the detection of premalignant and malignant conditions of the uterine cervix. It is not a diagnostic procedure and should not be used as the sole means of detecting cervical cancer. Both false-positive and false-negative reports do occur. Test methodology Comment [facility] - 01 Comment: This liquid based ThinPrep(R) pap test was screened with the use of an image guided system. . Comment [facility] - 01 Comment: The HPV DNA reflex criteria were not met with this specimen result therefore, no HPV testing was performed. Thin prep 06/09/2024 3:43 PM CDT 06/09/2024 Narrative [facility] - 06/16/2024 12:10 PM CDT Performed at: - [facility] [address] [place], [place] [id number] [employer]: Kourtney Carl MD, Phone: [phone] Specimen Comment: [id number] Specimen Comment: No. of containers..01 ThinPrep Vial us Joaquin Asif MD LAB CYTOLOGY ORDERABLES Fi nal Result [facility] - 01 * Comprehensive metabolic panel (11/13/2023 9:48 AM HEALTH CARE MARKETING MANAGER) Glucose 94 65 - 99 mg/dL [facility] Comment: Fasting reference interval BUN 14 7 - 25 mg/dL [facility] Creatinine 0.79 0.50 - 1.03 mg/dL [facility] eGFR 88 > OR = 60 mL/min/1.7 3m2 [facility] BUN/creat ratio SEE NOTE: 6 - 22 (calc) [facility] Comment: Not Reported: BUN and Creatinine are within reference range. Sodium 140 135 - 146 mmol/L [facility] Potassium, pl 3.6 3.5 - 5.3 mmol/L [facility] Chloride 100 98 - 110 mmol/L [facility] CO2 32 20 - 32 mmol/L [facility] Calcium 9.9 8.6 - 10.4 mg/dL [facility] Protein, sr 7.6 6.1 - 8.1 g/dL [facility] Albumin 4.5 3.6 - 5.1 g/dL [facility] GLOBULIN 3.1 1.9 - 3.7 g/dL (calc) [facility] Alb/glob ratio 1.5 1.0 - 2.5 (calc) [facility] Bilirubin, total 0.5 0.2 - 1.2 mg/dL [facility] Alk phos 89 37 - 153 U/L [facility] AST 16 10 - 35 U/L [facility] ALT (SGPT) 20 6 - 29 U/L [facility] Blood 11/13/2023 9:4 8 AM HEALTH CARE MARKETING MANAGER 11/13/2023 9:48 AM HEALTH CARE MARKETING MANAGER Jennyfer Serrano MD LAB BLOOD ORDERABLES Final Result Performing Organization Address [facility]/ZIP Co de Phone Number [facility] [address] [place] [address] * FIT occult blood, fecal (06/07/2023 12:00 AM CDT) Fecal globulin by immunochemistry [facility] Comment: FECAL GLOBIN BY IMMUNOCHEMISTRY Micro Number: [id number] Test Status: Final Specimen Source: Fecal Specimen Quality: Adequate Fecal Globin: Not Detected Stool 06/07/2023 06/12/2023 2:1 1 PM CDT Sonam Cast MD LAB BODY FLUIDS AND STOOLS ORDERABLES Final Result Performing Organization Address [facility] Co de Phone Number [facility] [address] [place] [address] * COLONOSCOPY (07/28/2022 12:20 PM HEALTH CARE MARKETING MANAGER) Anatomical Region Laterality Modality Other Narrative Procedure Note Sonam Cast MD - 07/28/2022 12:20 PM CST ENDOSCOPY LAB Patient Name: Elaina Sanches Procedure Date: 07/28/2022 12:20PM Date of : 1965 Admit Type: Outpatient Age: 57 Gender: Female Attending MD: Sonam Cast M.D. Room: [facility] ENDOSCOPY ROOM 05 Note Status: Finalized Procedure: Colonoscopy Indications: Iron deficiency anemia Providers: Sonam Cast M.D. Referring MD: Karson Rodriguez M.D. Medicines: Monitored Anesthesia Care Complications: No immediate complications. Estimated blood loss: Minimal. Estimated Blood Loss: Estimated blood loss was minimal. Procedure: Pre-Anesthesia Assessment: - Immediately prior to administration ofmedications, the patient was re-assessed for adequacy to receive sedatives. The benefits, risks and alternatives of theprocedure and sedation were discussed and informed consentwas obtained. All questions were answered. Please referto the signed informed consent document in the medical record. The scope was passed under direct vision.The [id number] was introduced through the anusand advanced to the terminal ileum. The colonoscopy was performed without difficulty. The patient tolerated the procedure well. The quality of the bowel preparation was evaluated using the BBPS (BostonBowel Preparation Scale) with scores of: Right Colon = 3, Transverse Colon = 3 and Left Colon = 3 (entiremucosa seen well with no residual staining, smallfragments of stool or opaque liquid). The total BBPS score equals 9. Findings: The digital rectal exam was normal. The terminal ileum appeared normal. A 5 mm polyp was found in the transverse colon. The polyp wassessile. The polyp was removed with a cold snare. Resection and retrieval were complete. A 2 mm polyp was found in the sigmoid colon. The polyp was sessile.The polyp was removed with a cold biopsy forceps. Resection and retrieval were complete. The retroflexed view of the distal rectum and anal verge was normaland showed no anal or rectal abnormalities. Impression: - The examined portion of the ileum was normal. - One 5 mm polyp in the transverse colon, removedwith a cold snare. Resected and retrieved. - One 2 mm polyp in the sigmoid colon, removed witha cold biopsy forceps. Resected and retrieved. - The distal rectum and anal verge are normal on retroflexion view. Recommendation: - Follow-up biopsy results. Please call the officeif you do not receive results in 2 weeks. - Patient has a contact number available for emergencies. The signs and symptoms of potential delayed complications were discussed with thepatient. Return to normal activities tomorrow. Written discharge instructions were provided to thepatient. - Contact Information: During normal business hours - [facility] [place] [facility]: [phone] After hours, evening, nights, weekends and holidays- Please call the hospital bullet slug casting machine operator at and ask for the GI fellow environmental protection inspector. Electronically by Dr Sonam Cast Sonam Cast M.D. 07/28/2022 12:44:51 PM Number of Addenda: 0 Note Initiated On: 07/28/2022 12:20 PM Sonam Cast MD ENDOSCOPY PROCEDURES Final Result * Hepatitis C antibody (06/11/2021 7:18 AM CDT) Hep C Ab NON-REACTI VE NON-REACT EVER [facility] SIGNAL TO CUT-OFF 0.02 <1.00 [facility] Comment: HCV antibody was non-reactive. There is no laboratory evidence of HCV infection. In most cases, no further action is required. However, if recent HCV exposure is suspected, a test for HCV RNA (test code 83259) is suggested. For additional information please refer to http://education.[employer]/faq/CKP96b6 (This link is being provided for informational/ educational purposes only.) Blood specimen (specimen) 06/11/2021 7:18 AM CDT 06/11/2021 7:19 AM CDT Narrative [facility] - 06/17/2021 5:07 PM CDT FASTING:YES FASTING: YES Sonam Cast MD LAB MICROBIOLOGY - GENERAL ORDERABLES Final Result Performing Organization Address [facility] de Phone Number [facility] [address] [place] [address] * Albumin Creatinine Ratio, Urine (06/07/2020 9:36 AM CDT) Creatinine, ur 38 20 - 275 mg/dL [facility] Microalbumin, ur 0.4 See Note: mg/dL [facility] Comment: Reference Range: Reference Range Not established Microalbumin/creat ratio 11 <30 mcg/mg creat [facility] Comment: The ADA defines abnormalities in albumin excretion as follows: Category Result (mcg/mg creatinine) Normal <30 Microalbuminuria 30-299 Clinical albuminuria > OR = 300 The ADA recommends that at least two of three specimens collected within a 3-6 month period be abnormal before considering a patient to be within a diagnostic category. Urine 06/07/2020 9:36 AM CDT 06/07/2020 9:41 PM CDT Rosemary Cooley MD LAB URINE ORDERABLES F inal Result Performing Organization Address [facility] de Phone Number [employer] [address] [facility] [place] [address] * (ABNORMAL) Hemoglobin A1c (06/07/2020 9:25 AM CDT) Hgb A1C 7.4(H) <5.7 % of total Hgb [facility] Comment: For someone without known diabetes, a hemoglobin A1c value of 6.5% or greater indicates that they may have diabetes and this should be confirmed with a follow-up test. For someone with known diabetes, a value <7% indicates that their diabetes is well controlled and a value greater than or equal to 7% indicates suboptimal control. A1c targets should be individualized based on duration of diabetes, age, comorbid conditions, and other considerations. Currently, no consensus exists regarding use of hemoglobin A1c for diagnosis of diabetes for children. Blood specimen (specimen) 06/07/2020 9:25 AM CDT 06/08/2020 7:24 AM CDT Rosemary Cooley MD LAB BLOOD ORDERABLES F inal Result [facility] [address] [place] [address] * (ABNORMAL) Lipid panel (06/07/2020 9:25 AM CDT) Pathologist [facility] Cholesterol 105 <200 mg/dL [facility] HDL 34(L) > OR = 50 mg/dL [facility] Triglycerides 124 <150 mg/dL [facility] LDL 50 mg/dL (calc) [facility] Comment: Reference range: <100 Desirable range <100 mg/dL for primary prevention; <70 mg/dL for patients with CHD or diabetic patients with > or = 2 CHD risk factors. LDL-C is now calculated using the Adalberto-Alexandre calculation, which is a validated novel method providing better accuracy than the Friedewald equation in the estimation of LDL-C. Adalberto SS et al. JENNIE. 2013;310(19): 3491-0758 (http://education.[employer]/faq/NMF667) Chol/HDL ratio 3.1 <5.0 (calc) [facility] Non-HDL, (LDL+VLDL) 71 <130 mg/dL (calc) [facility] Comment: For patients with diabetes plus 1 major ASCVD risk factor, treating to a non-HDL-C goal of <100 mg/dL (LDL-C of <70 mg/dL) is considered a therapeutic option. Blood specimen (specimen) 06/07/2020 9:25 AM CDT 06/08/2020 7:24 AM CDT Rosemary Cooley MD LAB BLOOD ORDERABLES F inal Result [facility] [address] [address] * DIABETES FOOT EXAM (06/05/2019) Diabetic Foot Exam Normal Historical Provider HEALTH MAINTENANCE Final Result * DIABETES EYE EXAM (11/06/2018) Diabetic Eye Exam Normal Historical Provider HEALTH MAINTENANCE Final Result from Last 3 Months or Most Recently Relevant to Health Maintenance Insurance [employer] Advance Directives For more information, please contact: [phone] * Full Code (Latest Code Status on File) Date Activated Date Inactivated Comments 06/07/2023 2:20 PM 06/07/2023 7:52 PM * Full Code Date Activated Date Inactivated Comments 07/28/2022 11:34 AM 07/28/2022 5:52 PM * Full Code Date Activated Date Inactivated Comments 11/09/2021 8:06 AM 11/10/2021 4:42 AM * Full Code Date Activated Date Inactivated Comments 11/13/2018 7:38 AM 11/13/2018 1:12 PM Care Teams Storage Center Manager Relationship Specialty Start Date End Date Darcie Jacobs PA PCP - General Neurosurgery 02/19/23
--- OUTSIDE RECORDS SUMMARY | 2025-04-10 18:41 | XMS_ITS | Continuity of Care Document ---
Author Organization [facility] Address [address] [place] [id number] Phone Care Team Providers Care Range Conservationist Name Role Phone Jacquelyn Alas OD Unavailable Unavailable Allergies, Adverse Reactions, Alerts Substance Reaction Status Criticality Sulfa (Sulfonamide Antibiotics) Active No Information Medications Medication Instructions Dosage Effective Dates (start - stop) Status Comments Rybelsus 7 mg tablet take 1 tablet by oral route every day in the morning 30 min before any food, drink or medication with no more than 4 oz plain water 7 MG - Active ursodiol 300 mg capsule take (4MG/KG) by oral route 2 times every day 4 MG/KG - Active Mounjaro 7.5 mg/0.5 mL subcutaneous pen injector inject (7.5MG) by subcutaneous route every week 7.5 MG - Active Vascepa 1 gram capsule take 2 capsule by oral route 2 times every day with food swallowing whole. Do not chew, open, dissolve and/or crush. 2 G - Active Linzess 145 mcg capsule take 1 capsule by oral route every day on an empty stomach at least 30 minutes before 1st meal of the day 145 MCG - Active aspirin 81 mg tablet,delayed release take 1 tablet by oral route every day 81 MG - Active Jardiance 10 mg tablet take 1 tablet by oral route every day in the morning 10 MG - Active lisinopril 20 mg tablet take 1 tablet by oral route every day 20 MG - Active triamterene 37.5 mg-hydrochlorothia zide 25 mg capsule take 1 capsule by oral route every day 1.00 capsule - Active omeprazole 40 mg capsule,delayed release take 1 capsule by oral route every day before a meal 40 MG - Active multivitamin capsule take 1 capsule by oral route every day - Active atorvastatin 40 mg tablet take 1 tablet by oral route every day 40 MG - Active Janumet XR 100 mg-1,000 mg tablet,extended release take 1 tablet by oral route every day with the evening meal, swallowing whole. Do not crush, chew and/or divide. 1.00 tablet - No Longer Active Minastrin 24 Fe 1 mg-20 mcg (24)/75 mg (4) chewable tablet chew 1 tablet by oral route every day - No Longer Active Procedures Procedure Date Refraction No Charge Optomap Fundus Photos 024 Eye Exam & Treatment Refraction Eye Exam & Treatment Fundus Photography W/ Report No Charge Optomap Fundus Photos 021 Eye Exam & Treatment Refraction Eye Exam & Treatment Eye Exam & Treatment No Charge Refraction Eye Exam & Treatment Refraction Eye Exam & Treatment Refraction Eye Exam & Treatment Office/outpatient Visit, Est Eye Exam & Treatment Eye Exam, New Patient Advance Directives Directive Yes / No Effective Date File Name No Information Encounters Encounter Description Practice Location Reason(s) For Visit Diagnoses Date Provider Providers Copied on Encounter [facility], [address], [place], [place], [id number], [place] tel:[phone] SEC Christopher LETTY Professional Complete Exam (chief complaint) Type 2 diabetes mellitus without complications History of Holcomb's palsyChoroida l nevus, leftAge-relat ed nuclear cataract, bilateral 4 Evette OD Jacquelyn. [address], [address], [place], [place], [address], [place]. tel:[phone] Specialist : Lawrence Thompson MD, [address] [place], [address]. tel:[phone] er Provider: Lawrence Thompson MD, [address] [place], [address]. tel:[phone] erring Provider: Hernandez Berg, [address] [facility] [address], [place], [address] . tel:[phone] [email or web address], [address] [place] [address] [address], [place], [place], [address], [place] tel:[phone] SEC [facility] Professional Refraction only (chief complaint) Hypermetropia , bilateralPres byopia Nov- 2 Evette SELAM Garzaica. [address] [place], [place] [address] [facility], [address], [place], [address], [place]. tel:[phone] Trace Guan MD.Referri ng Provider: Hernandez Berg, [address] [facility] [address], [place], [address] . tel:[phone] [email or web address], [address] [place], [place] [address], [place], [place], [address], [place] tel:[phone] SEC [facility] Professional Diabetic eye exam (chief complaint) Age-related nuclear cataract, bilateralType 2 diabetes mellitus without complications Choroidal nevus, left 2 Marko Ng. [address] [facility] [place], [place], [address], [place]. tel:[phone] Trace Guan MD.Referri ng Provider: Tasia Barton, [address] [facility], [place], [address]. tel:[phone] [email or web address], [address], [place], [place], [address], [place] tel:[phone] SEC [facility] Professional Diabetic eye exam (chief complaint) Age-related nuclear cataract, bilateralType 2 diabetes mellitus without complications H/O Holcomb's palsyDry eye syndrome of bilateral lacrimal glandsLattice degeneration of both retinas Mar-0 1 Marko Ng. [address] [facility] [place], [place], [address], . tel:[phone] Trace Guan MD.Other Provider: Trace Guan MD, [address] [place] [address] [place] [address], [address]. tel:[phone] erring Provider: Hernandez Berg, [address] [facility] [address], [place], [address] . tel:[phone] [facility], [address] [place] [address] [address], [place], [address], [place] tel:[phone] SEC [place] Professional Diabetic eye exam (chief complaint) Age-related nuclear cataract, bilateralType 2 diabetes mellitus without complications RPE mottling of maculaH/O Holcomb's palsy 0 Marko Ng. [address] [facility], [facility] [place], [place], [address], [place]. tel:[phone] Trace Guan MD.Special ist: Trace Guan MD, [address] [place] [address] [place] [address], [address]. tel:[phone] er Provider: Trace Guan MD, [address] [place] [address] [place] [address], [address]. tel:[phone] erring Provider: Tasia Barton, [address] [facility], [place], [address]. tel:[phone] [facility], [address], [place], [place], [address], [place] tel:[phone] SEC [place] Professional Diabetic eye exam (chief complaint) Age-related nuclear cataract, bilateralType 2 diabetes mellitus without complications History of Holcomb's palsy 9 Marko Ng. [address] [facility] [place], [place], [address], [place]. tel:[phone] Specialist : [place], [address] [facility] [address], [place], [address]. tel:[phone] [place]ialist: [place], [address] [facility] [address], [place], [address]. tel:[phone] erring Provider: Hernandez Berg, [address] [facility] [address], [place], [address] . tel:[phone] [facility], [address] [place] [address] [address], [place], [place], [address], [phone] SEC Christopher [place] Professional No Information Marko Ng. [address] [facility] [place], [place], [address], . tel:[phone] [facility], [address] [place] [address] [address], [place], [place], [address], [place] tel:[phone] SEC [place] Professional Complete Exam (chief complaint) H/O Holcomb's palsyPtosis of eyelid, bilateralAge- related nuclear cataract, right eyeAge-relate d nuclear cataract, left eyeType 2 diabetes mellitus without complications Allergic conjunctiviti s of both eyes 8 Mick Dozier. [address] [place] [address], [facility], . tel:[phone] Referring Provider: Madan Maki, [address] [facility] [place], [address] . tel:[phone] [facility], [address] [place] [address] [address], [place], [place], [address], [place] [phone] SEC Christopher [place] Professional Complete Exam (chief complaint) No Information 6 Liliam Hager. [address] [facility] [place], [place], [address], [place]. tel:[phone] Referring Provider: Madan Maki, [address] [facility] [address], [place], [address] . tel:[phone] [facility], [address], [place], [place], [address], [place] tel:[phone] SEC [place] Professional Diabetic eye exam (chief complaint) No Information Oct-2 6-201 5 Liliam Hager. [address] [facility], [address], [place], [place], [address], [place]. tel:[phone] Referring Provider: Madan Maki, [address] [facility] [address], [place], [address] . tel:[phone] Office/outpa tient Visit, [facility], [address], [place], [place], [address], [place] tel:[phone] SEC [place] Professional Discharge, mucus (chief complaint) No Information Mar-1 8-201 5 Davide Guerrero. [address], [address], [place], [address], [place]. tel:[phone] Referring Provider: Madanbita Maki, [address] [facility] [address], [place], [address] . tel:[phone] [facility], [address], [place], [place], [address], [place] [phone] SEC [facility] Professional Diabetic eye exam (chief complaint) No Information Oct-2 2-201 4 Liliam Hager. [address] [facility], [address], [place], [place], [address], [place]. tel:[phone] Referring Provider: Madan Maki, [address] [facility] [address], [place], [address] . tel:[phone] [facility], [address] [place] [address] [address], [place], [place], [address], [place] tel:[phone] SEC [place] LETTY Professional No Information 3 Liliam Hager. [address], [facility] [place], [place], [address], . tel:[phone] Referring Provider: Madan Mariposamakayla Maki, [address], [place], [address] . tel:[phone] [facility], [address], [place], [place], [address], tel:[phone] SEC Christopher LETTY Professional No Information 3 Liliam Hager. [address], [facility] [place], [place], [address], . tel:[phone] Family History Family Member Type Diagnosis Age At Onset Close relative Problem (finding) hypertension Payers Payer name Insurance type Covered republican ID Authorcandidoa tarasezio(s) R CI [id number] Social History Type Description Quantity Date Captured Comments Alcohol Use Details 2 drinks occasionally Caffeine Use Details 1 cup per day Tobacco Use Status Ex-cigarette smoker 024 Smoking Status Former smoker Smoking Tobacco Use Details Cigarette: Age Stopped: 43 Cigarette: No Details Available Sex Female Chief Complaint And Reason For Visit From encounter dated 02/05/2024 13:00'. Complete Exam (chief complaint). Description: The 58 year old patient presents for evaluation of DMComplete Exam in the right eye and left eye. Pt followed by Dr. Thompson for DMII, last A1C was 5.8. Pt wears Reji 3 and current reading is 126. Pt is realizing it is getting more difficult to read smaller print. Pt states she may need an update to glasses Rx and is aware of the fee. Reason For Referral Reason For Referral No Information Plan Of Treatment Date Type Action Status Goal Tobacco cessation counseling completed Goal Tobacco cessation counseling completed Goal Tobacco cessation counseling completed Appointment Elaina Sanches BOOKED Patient Education Cataracts: Care Instruc tions completed Patient Education Cataracts: Care Instruc tions completed Patient Education Cataracts: Care Instruc tions completed Patient Education Cataracts: Care Instruc tions completed Patient Education Cataracts: Care Instruc tions completed History Of Present Illness Encounter Date Complaint History Of Prese nt Illness Complete Exam The 58 year old patient presents for evaluation of DM Complete Exam in the right eye and left eye. Pt followed by Dr. Thompson for DMII, last A1C was 5.8. Pt wears Reji 3 and current reading is 126. Pt is realizing it is getting more difficult to read smaller print. Pt states she may need an update to glasses Rx and is aware of the fee. Refraction only The 56 year old patient presents for evaluation of Refraction only in the right eye and left eye. Diabetic eye exam The 56 year ol d client presents for evaluation of Diabetic eye exam in the right eye and left eye. Hx of [place] Palsy and mild Cataracts OU. Patient not sure if there are any changes with her eyes. Patient a1c 7.2, BS checked @ 193, and Dr. Guan treats her diab. Diabetic eye exam The 55 year ol d female presents for evaluation of Diabetic eye exam in the right eye and left eye. Hx of [place] Palsy and mild Cataracts OU. Patient states VA comes and goes some days clearer than others. Patient is a Type 2 diab x 5 years, NOT on Insulin, BS checked yesterday @ 150, a1c 7.4, and Dr. Guan treats her diab. Diabetic eye exam The 54 year ol d female presents for evaluation of Diabetic eye exam in the right eye and left eye. Hx of [place] Palsy and mild Cataracts OU. Patient states on Sunday the VA went blurry in the right 3 different episodes then cleared up. Patient states OU itch and the left eye tears. Patient is a Type 2 diab x 4 years, NOT on Insulin, BS checked this am @ 189, a1c 7.2, and Dr. Guan treats her diab. Patient states her PCP is changing to Dr. Cooley in november or December. Patient would like checked for new glasses today. Diabetic eye exam The 53 year ol d female presents for evaluation of Diabetic eye exam in the right eye and left eye. Hx of [place] Palsy and Mild Cataracts OU. Patient states she has more trouble seeing her computer. Patient is a type 2 diab x 3 years, NOT Insulin dependant, BS checked yesterday @ 184, a1c 6.7, and Dr. Guan treats her diab. Patient states that her doctor has not received her exams from here and wants to make sure it is sent to him previous exams as well. Complete Exam The 52 year old female presents for Complete Exam in the right eye and left eye. NIDDM II. BS 116 last night. Last A1c 7.5 3 months ago. Pt states she has been having a lot of drainage in OU. States RUL is drooping more due to bells. Pt has been using WC and they help some but OU drain when not using. Drainage is thick like mucus. Complete Exam The 51 year old female presents for Complete Exam OU. Patient has hx of LO OU and NIIDM II ( last BS taken was 192 couple of days ago) Patient reports stable vision but would like new spec rx. Patient reports increased discharge OU. Diabetic eye exam The 50 year ol d female presents for a complete Type II diabetic eye exam ou. Patient states BS was 100 this am. Patient has recently had sinus sx. patient thinks needs stronger bifocal. Patient would like to be fit for contacts. Discharge, mucus The 49 year old female presents for a WIE. Patient c/o OS has mucus and c/o corners are sore OS x 4 days. Patient was using OTC sty medication. Diabetic eye exam Patient presen ts for a complete diabetic exam. Patient c/o hard to read small print. Patient states sometimes eyes feel droopy. Functional Status Date Functional Assessmen t No Information Instructions Date Instruction Additional Infor josh Impression/Plan Impression/Plan Impression/Plan Impression/Plan Impression/Plan Impression/Plan Impression/Plan - Di scussed referral to Oculoplastics Surgeon if ever indicated in the future. Also discussed that given her history of holcomb's palsy, lid surgery could lead to worsening dry eye. Pt would like to monitor for now. 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 No lag on exam, no keratopathy. Did recommend ATs for lubrication. Related to H/O Holcomb's palsy Impression/Plan - Di scussed exam findings with patient. Cataracts not visually significant at this time, will monitor. Impression/Plan - Di scussed that there are signs of allergies on exam, however dry eye may be contributing to symptoms. Recommended trial of ATs. Sample given. Will try Ketoralac if symptoms persist. Related to Allergic conjunctivitis of both eyes Impression/Plan - Di abetes without retinopathy- No signs of retinopathy on exam- Will send letter Dr. De La Garza - Discussed importance of good BS and BP control. 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 for Complete Exam. Impression/Plan - Di scussed diagnosis in detail with patient. Recommend artificial tears prn for dry eyes. Diabetes type II: no background retinopathy, no signs of neovascularization noted. Discussed ocular and systemic benefits of blood sugar control. DM letter sent to Dr De La Garza. No sings of Glaucoma or AMD OU. Rx for glasses given. Return to clinic in 1 year for complete diabetic exam or sooner with any problems. Return in 1 year wit h Madan Ricketts M.D. for Complete Exam. Related to Diabetes type 2, controlled Impression/Plan - Di abetes type II: no background retinopathy, no signs of neovascularization noted. Discussed ocular and systemic benefits of blood sugar control. DM letter sent to Dr De La Garza. Order monovision trial contacts, no fitting fee charges at this time. If pt elects mono will proceed with contact lens purchase and fitting fees. If patient decides against monovision, will refer patient to Dr. Cantu for bifocal contact lens fitting. AV Oasys 8.3 OD +1.75 OS 8.3 +4.25 and +4.50. Will call patient when contacts come in. Patient has worn contacts in the past and does not need appt to pickers material handlers. Return to clinic in 1 year for complete exam or sooner with any problems. Related to Diabetes type 2, controlled Follow up - Return i n 1 year with Madan Ricketts M.D. for Complete Exam. Related to Diabetes type 2, controlled - Dry eyes account f or the patient's complaints. There is no evidence of permanent changes to the cornea. Explained condition does not have a cure and will need artificial tears for maintenance. Related to Dry eyes - as scheduled Related to Dry e yes - Diabetes: no backg round retinopathy, no signs of neovascularization noted. Discussed ocular and systemic benefits of blood sugar control. Discussed LO and the use of ATs. New Rx for glasses provided to pt today. Letter sent to Dr. De La Garza. RTC in 1 year for a complete exam. Educational materials provided:about today's exam. Related to See list of assessments above - Return in 1 year Related to Se e list of assessments above no eeg technician - DM letter Related to Di abetes Type II - 1yr Related to Diabe myke Type II Assessments Type Assessment Date assessment Type 2 diabetes mellitus without complications assessment History of Holcomb's palsy 024 assessment Choroidal nevus, left 4 assessment Age-related nuclear cataract, bi lateral Patient Care Teams Name Effective Dates (start - stop) Status Members No Information
--- OUTSIDE RECORDS SUMMARY | 2025-04-10 18:41 | XMS_ITS | Encounter Summary ---
Author Organization [facility] Address [address] [place] [address] Phone Care Team Providers Care Industrial Cafeteria Manager Name Role Phone Darcie Jacobs PAC Primary Care Pro vider Lawrence Thompson MD Unavailable Reason for Visit * Reason Comments Medication Refill Encounter Details Date Type Department Care Team (Late st Contact Info) Description 02/17/2024 Refill [facility] - Internal Medicine - [place] [address] [place] [address] Darcie Jacobs, PAC [address] [place] [address] Medication Refill Social History Tobacco Use Types Packs/Day Years Used Date Smoking Tobacco: Former Cigarettes Q uit: 02/11/2008 Smokeless Tobacco: Never Alcohol Use Standard Drinks/Week Comments Yes 0 (1 standard drink = 0.6 oz pur e alcohol) socially [facility] Utilities Answer Date Recorded In the past 12 months has [employer], gas, oil, or water [employer] threatened to shut off services in your home? No 12/13/2023 Social Connection and Isolation Panel Answer Date Recorded In a typical week, how many times do you talk on the phone with family, friends, or neighbors? Once a week 12/13/2023 How often do you get togethe r with friends or relatives? Patient declined 12/13/2023 How often do you attend chur or presybeterian services? More than 4 times per year 12/13/2023 Do you belong to any clubs o r organizations such as samaritan groups, unions, fraternal or athletic groups, or [...] Total Score - Questions 1-9 10 12/2021 [facility] of Occupat ional [facility] - Occupational Stress Questionnaire Answer [...] place to sleep or slept in a chcf (including now)? No 12/13/2023 Education Answer Date [...] Telephone Encounter - Hannah Vogel RN - 02/18/2024 8:55 AM CDT Medication(s) refilled and signed per [facility] Chronic Medication Refill Standing Order for Pediatricand Adult Patients. Requested Prescriptions Pending Prescriptions Disp Refills lisinopril (PRINIVIL, ZESTRIL) 20 MG Tablet [Pharmacy Med Name: Lisinopril 20 MG Oral Tablet] 90 Tablet 0 Sig: Take 1 tablet by mouth once daily NOELLE Inhibitors Protocol Passed - 02/17/2024 11:22 AM Passed - Serum potassium on record in past 12 months POTASSIUM Date Value Ref Range Status 12/18/2023 3.6 3.5 - 5.1 mmol/L Final Passed - Blood pressure on record in past 12 months Clinician-entered: BP Readings from Last 3 Encounters: 02/13/24 118/74 12/14/23 122/76 11/13/23 102/67 Patient-entered: No data recorded Passed - Visit with relevant provider in past 12 months or upcoming 90 days Recent Visits Date Type Provider Dept 12/14/23 Office Visit Darcie [facility], [facility] [place] Showing recent visits within past 365 days and meeting all other requirements Future Appointments No visits were found meeting these conditions. Showing future appointments within next 90 days and meeting all other requirements Passed - GFR on record in past 12 months GFR, EST. NONAFRICAN Date Value Ref Range Status 12/18/2023 >60 >=60 Final documented in this encounter Plan of Treatment Upcoming Encounters Date Type Department Care Team (Late st Contact Info) Description 07/15/2025 10:15 AM CERTIFIED MEETING PROFESSIONAL Office Visit [facility] - Primary Care - [place] [address] [place] [address] Darcie Jacobs, PAC [address] [place] [address] 08/17/2025 11:00 AM CERTIFIED MEETING PROFESSIONAL Office Visit [facility] - Endocrinology - [place] [address] [place] [address] Lawrence Thompson MD [address] [phone] documented as of this encounter Visit Diagnoses Not on filedocumented in this encounter Additional Health Concerns Assessment Noted Time PHQ-9 Depression Total Score: 10 022 8:00 AM CDT documented as of this encounter Care Teams Industrial Cafeteria Manager Relationship Specialty Start Date End Date Darcie Jacobs, PAC [address] [place] [address] PCP - General Physician Crystal Machining Coordinator 12/08/20 Lawrence Thompson MD [address] [phone] Consulting Physician Endocrinology 11/02/23 documented as of this encounter
--- OUTSIDE RECORDS SUMMARY | 2025-04-10 18:41 | XMS_ITS | Referral Summary ---
Author Organization [facility] Address [address] [address] Care Team Providers Care Graduate Engineer Name Role Phone Darcie Jacobs Primary Care Prov ider Allergies Active Allergy Reactions Criticality Noted Date Comments Sulfa (Sulfonamide Antibiotics) Rash Medium Sulfanilamide Rash Medium Medications atorvastatin (LIPITOR) 40 mg tablet Take 1 tablet (40 mg total) by mouth daily Active fsfhlmvtjfft-Tv-x ginny-minerals 18-0.4 mg tablet Take 1 tablet [...] (06/15/2022): Added automatically from request for surgery [id number] Palpitations 06/07/2020 Assessment & Plan (06/07/2020 9:21 [...] months. Assessment & Plan (08/13/2017 9:13 AM ECONOMIC MANAGER): 1.Continue omeprazole 40 mg once daily. [...] daily. Assessment & Plan (08/13/2017 9:14 AM ECONOMIC MANAGER): 1. Trial of Linzess 290 mcg [...] Encouraged to schedule follow up with Dr. Guan Assessment & Plan (12/05/2019 1:00 PM CDT): Follows with Dr. Guan q3mo Continue Janumet and Jardiance On statin Eye exam in October - she will try to get records for us Assessment & Plan (06/05/2019 9:17 AM CDT): Follows with Dr. Guan last A1c 7.1 she is doing excellent [...] current regimen. She follows with Dr. Tay Guan last A1c of 7.1 stable at this [...] current regimen. Last a1c 6.[address] GUAN Resolved Problems Problem Noted Date Diagnosed Date Resolved Date Menorrhagia with irregular cycle 05/12/2022 06/09/2024 Assessment & Plan (05/12/2022 2:23 PM CDT): Will check FSH level and pelvic ultrasound. Medical treatment with mIUD vs surgical treatment discussed. Ultimately, will consult MD prior to initiating treatment for bleeding after pelvic sono and labs reviewed. URI, acute 08/19/2019 12/05/2019 Assessment & Plan (08/19/2019 11:45 AM ECONOMIC MANAGER): We discussed today. It sounds like [...] (11/12/2018): Added automatically from request for surgery [id number] BMI 34.0-34.9,adult 07/16/2018 01/10/20 19 Assessment & Plan (12/03/2018 9:06 AM CDT): BMI Follow-up includes: nutrition counseling, exercise counseling and education provided. Assessment & Plan (07/16/2018 10:52 AM ECONOMIC MANAGER): BMI Follow-up includes: nutrition counseling, exercise counseling and education provided. Other chest pain 07/16/2018 12/05/2019 Assessment & Plan (07/16/2018 11:13 AM ECONOMIC MANAGER): Patient states she had called our office yesterday and was told to go to the emergency room. 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 Not on file Not on file Not on file Last Filed Vital Signs Vital Sign Reading Time Taken Comments Blood Pressure 106/73 10/23/2024 9:45 AM ECONOMIC MANAGER Pulse 82 10/23/2024 9:45 AM ECONOMIC MANAGER Temperature 36.2 C (97.2 F) 10/23/2024 9:45 AM ECONOMIC MANAGER Respiratory Rate 18 06/07/2023 3:45 PM CDT Oxygen Saturation 93% 06/07/2023 3:45 PM CDT Inhaled Oxygen Concentration - - Weight 67.7 kg (149 lb 3.2 oz) 10/23/2024 9:45 A M ECONOMIC MANAGER Height 160 cm (5' 3) 10/23/2024 9:45 AM ECONOMIC MANAGER Body Mass Index 26.43 10/23/2024 9:45 AM ECONOMIC MANAGER Plan of Treatment Not on file Procedures Procedure Name Priority Date/Time Associated Diagnosis Comments SCREENING MAMMOGRAM BILATERAL W WILBER Schedule Routine, Read Routine (OP Routine) 10/15/2024 2:31 PM ECONOMIC MANAGER PAP, REFLEX HPV Routine 06/09/2024 3:43 PM CDT Well woman exam COMPREHENSIVE METABOLIC PANEL Routine 11/13/2023 9:48 AM ECONOMIC MANAGER Primary biliary cholangitis (HCC) FIT OCCULT BLOOD, FECAL Routine 06/07/2023 12:00 AM CDT Melena COLONOSCOPY 07/28/2022 12:20 PM ECONOMIC MANAGER HEPATITIS C ANTIBODY Routine 06/11/2021 7:18 [...] Mammogram Bilateral W Wilber (10/15/2024 2:31 PM ECONOMIC MANAGER) Anatomical Region Laterality Modality Breast Bilateral Mammography us Historical Provider MD WAY MAMMO PROCEDURES Madeline l Result * Pap, reflex HPV (06/09/2024 3:43 PM CDT) Clinical indication Comment [facility] - 01 Comment: NEGATIVE FOR INTRAEPITHELIAL LESION OR MALIGNANCY. THIS SPECIMEN WAS RESCREENED PART OF OUR GAME AND FISH PROTECTOR PROGRAM. Specimen adequacy: Comment [facility] - 01 [...] 06/16/2024 12:10 PM CDT Performed at: - [address] [place], [place] [id number] [employer] Plant Worker: Kourtney Carl MD, Phone: [phone] Specimen Comment: [id number] Specimen Comment: No. of containers..01 ThinPrep Vial us Joaquin Asif MD LAB CYTOLOGY ORDERABLES Fi nal Result [facility] - 01 * Comprehensive metabolic panel (11/13/2023 9:48 AM ECONOMIC MANAGER) Glucose 94 65 - 99 mg/dL [...] 29 U/L [facility] Blood 11/13/2023 9:48 AM ECONOMIC MANAGER 11/13/2023 9:48 AM ECONOMIC MANAGER Jennyfer Serrano MD LAB BLOOD ORDERABLES Final Result Performing Organization Address [facility]/ZIP Co de Phone Number [facility] [address] [address] [phone] * FIT occult blood, fecal (06/07/2023 12:00 AM CDT) Fecal globulin by immunochemistry [facility] Comment: FECAL GLOBIN BY IMMUNOCHEMISTRY Micro Number: [id number] Test Status: Final Specimen Source: Fecal Specimen Quality: Adequate Fecal Globin: Not Detected Stool 06/07/2023 06/12/2023 2:1 1 PM CDT Sonam Cast MD LAB BODY FLUIDS AND STOOLS ORDERABLES Final Result Performing Organization Address [facility] Co de Phone Number [facility] [address] [address] [phone] * COLONOSCOPY (07/28/2022 12:20 PM ECONOMIC MANAGER) Anatomical Region Laterality Modality Other Narrative Procedure Note Sonam Cast MD - 07/28/2022 12:20 PM CST ENDOSCOPY LAB Patient Name: Elaina Conde Procedure Date: 07/28/2022 12:20PM Date of : 1965 Admit Type: Outpatient Age: 57 Gender: Female Attending MD: Sonam Cast M.D. Room: [facility] ENDOSCOPY ROOM 05 Note Status: Finalized Procedure: [...] The scope was passed under direct vision.The [id number] was introduced through the anusand advanced to [...] During normal business hours - Please call theNurse Coordinator: [phone] After hours, evening, nights, weekends and holidays- Please call the hospital nailing machine operator automatic at and ask for the GI fellow correction lieutenant. Electronically by Dr Sonam Cast Sonam Cast [...] a test for HCV RNA (test code 48237) is suggested. For additional information please refer to http://education.[employer]/faq/YUA25q5 (This link is being provided for informational/ educational purposes only.) Blood specimen (specimen) 06/11/2021 7:18 AM CDT 06/11/2021 7:19 AM CDT Narrative [facility] - 06/17/2021 5:07 PM CDT FASTING:YES FASTING: YES Sonam Cast MD LAB MICROBIOLOGY - GENERAL ORDERABLES Final Result Performing Organization Address [facility] Co de Phone Number [facility] [address] [place] [address] * Albumin Creatinine Ratio, Urine (06/07/2020 9:36 [...] ORDERABLES F inal Result Performing Organization Address [facility] de Phone Number [facility] [address] [place] [address] * (ABNORMAL) Hemoglobin A1c (06/07/2020 9:25 AM [...] MD LAB BLOOD ORDERABLES F inal Result Performing Organization Address [facility]/ZIP Co de Phone Number [facility] [address] [address] [phone] * (ABNORMAL) Lipid panel (06/07/2020 9:25 AM CDT) Pathologist [facility] Cholesterol 105 <200 mg/dL [facility] [...] factors. LDL-C is now calculated using the Adalberto-Bettie calculation, which is a validated novel method providing better accuracy than the Friedewald equation in the estimation of LDL-C. Adalberto SS et al. JENNIE. 2013;310(23): 6137-0330 (http://education.[employer]/faq/EBE027) Chol/HDL ratio 3.1 <5.0 (calc) [facility] [...] MD LAB BLOOD ORDERABLES F inal Result Performing Organization Address [facility]/ZIP Co de Phone Number [facility] [address] [address] [phone] * HM DIABETES FOOT EXAM (06/05/2019) Diabetic Foot Exam Normal us Historical Provider HEALTH MAINTENANCE Final Result * DIABETES EYE EXAM (11/06/2018) Diabetic Eye Exam Normal us Historical Provider HEALTH MAINTENANCE Final Result from Last 3 Months or Most Recently Relevant to Health Maintenance Insurance [employer] OOS Advance Directives For more information, please contact: [phone] * Full Code (Latest Code Status on File) Date Activated Date Inactivated Comments 06/07/2023 2:20 PM 06/07/2023 7:52 PM * Full Code Date Activated Date Inactivated Comments 07/28/2022 11:34 AM 07/28/2022 5:52 PM * Full Code Date Activated Date Inactivated Comments 11/09/2021 8:06 AM 11/10/2021 4:42 AM * Full Code Date Activated Date Inactivated Comments 11/13/2018 7:38 AM 11/13/2018 1:12 PM Care Teams Graduate Engineer Relationship Specialty Start Date End Date Darcie Jacobs PA PCP - General Neurosurgery 02/19/23
[2025-04-10 18:42] VITALS: BP 167/83; PULSE 101; RESP 16; TEMP 37.2; O2SAT 100
--- OUTSIDE RECORDS SUMMARY | 2025-04-10 18:43 | XMS_ITS | Encounter Summary ---
Author Organization [facility] Address [address] [place] [address] Phone Care Team Providers Care Mds Rn Name Role Phone aDrcie Jacobs PAC Primary Care Pro vider Lawrence Thompson MD Unavailable Reason for Visit * Reason Comments Medication Refill Encounter Details Date Type Department Care Team (Late st Contact Info) Description 06/13/2021 [facility]ill [facility] - Internal Medicine - [place] [address] [place] [address] Darcie Jacobs, PAC [address] [place] [address] Medication Refill Social History Tobacco Use Types Packs/Day Years Used Date Smoking Tobacco: Former Cigarettes Q uit: 02/11/2008 Smokeless Tobacco: Never Alcohol Use Standard Drinks/Week Comments Yes 0 (1 standard drink = 0.6 oz pur e alcohol) socially PHQ-2 Answer Date Recorded Total Score - Questions 1-9 0 11/10 Sexually Active Control Partners Comments Yes Comments No Sex and Gender Information Value Date Recorded Sex Assigned at Female 12/12/2023 9:44 AM CDT Legal Sex Female 11:59 PM CDT Gender Identity Female 12/12/2023 9:44 AM CDT Sexual Orientation Not on file COVID-19 Exposure Response Date Recorded In the last month, have you been in contact with someone who was confirmed or suspected to have Coronavirus / COVID-19? No / Unsure 06/10/2021 3:04 PM CDT documented as of this encounter Miscellaneous Notes * Telephone Encounter - Kat Munguia RN - 06/13/2021 8:56 AM CDT Medication failed the protocol, provider to review and approve the medication order if appropriate. Requested Prescriptions Pending Prescriptions Disp Refills lisinopril (PRINIVIL, ZESTRIL) 20 MG Tablet [Pharmacy Med Name: Lisinopril 20 MG Oral Tablet] 90 Tablet 0 Sig: Take 1 tablet by mouth once daily NOELLE Inhibitors Protocol Failed - 06/13/2021 6:24 AM Failed - Serum potassium on record in past 12 months No results found for: POTASSIUM, POCTK Failed - GFR on record in past 12 months No results found for: GFRNA Passed - Blood pressure on record in past 12 months Clinician-entered: BP Readings from Last 3 Encounters: 06/10/21 124/80 12/08/20 134/70 06/22/16 110/70 Patient-entered: No data recorded Passed - No positive test in the past 12 months or most recent test was negative Passed - Visit with relevant provider in past 12 months or upcoming 90 days Recent Visits Date Type Provider Dept 06/10/21 Office Visit Darcie Jacobs PAC [facility] 12/08/20 Office Visit Darcie Jacobs, [facility] Showing recent visits within past 365 days [...] mouth once daily Diuretics Protocol Failed - 06/13/2021 6:24 AM Failed - Serum potassium on record in past 12 months No results found for: POTASSIUM, POCTK Failed - Serum sodium on record in past 12 months No results found for: SODIUM Failed - GFR on record in past 12 months No results found for: GFRNA Passed - Blood pressure on record in past 12 months Clinician-entered: BP Readings from Last 3 Encounters: 06/10/21 124/80 12/08/20 134/70 06/22/16 110/70 Patient-entered: No data recorded Passed - Visit with relevant provider in past 12 months or upcoming 90 days Recent Visits Date Type Provider Dept 06/10/21 Office Visit Darcie Jacobs PAC [facility] [place] 12/08/20 [facility], [facility] [place] Showing recent visits within past 365 days and meeting all other requirements Future Appointments No visits were found meeting these conditions. Showing future appointments within next 90 days and meeting all other requirements documented in this encounter Plan of Treatment Upcoming Encounters Date Type Department Care Team (Late st Contact Info) Description 07/15/2025 10:15 AM COOPER HELPER Office Visit [facility] - Primary Care - [place] [address] [place] [address] Darcie Jacobs PAC [address] [place] [address] 08/17/2025 11:00 AM COOPER HELPER Office Visit [facility] Medical [facility] - Endocrinology - [place] [address] [place] [phone] Lawrence Thompson MD [address] [address] documented as of this encounter Visit Diagnoses Not on filedocumented in this encounter Additional Health Concerns Assessment Noted Time PHQ-9 Depression Total Score: 0 12/09/19 21 1:00 PM CDT documented as of this encounter Care Teams Mds Rn Relationship Specialty Start Date End Date Darcie Jacobs PAC [address] [place] [address] PCP - General Physician Pattern Finisher 12/08/20 Lawrence Thompson MD [address] [phone] Consulting Physician Endocrinology 11/02/23 documented as of this encounter
--- OUTSIDE RECORDS SUMMARY | 2025-04-10 18:43 | XMS_ITS | Encounter Summary ---
Author Organization [facility] Address [address] [place] [address] Phone Care Team Providers Care Identity Management Consultant Name Role Phone Darcie Jacobs PAC Primary Care Pro vider Lawrence Thompson MD Unavailable Reason for Visit * Reason Comments Medication Refill Encounter Details Date Type Department Care Team (Late st Contact Info) Description 09/11/2021 Refill [facility] - [facility] Medicine - [place] [address] [place] [address] Darcie Jacobs, PAC [address] [place] [address] Medication Refill Social History Tobacco Use Types [...] Telephone Encounter - Sonam Pappas RN - 09/12/2021 9:28 AM CST Medication failed the protocol, provider to review and approve the medication order if appropriate. Requested Prescriptions Pending Prescriptions Disp Refills lisinopril (PRINIVIL, ZESTRIL) 20 MG Tablet [Pharmacy Med Name: Lisinopril 20 MG Oral Tablet] 90 Tablet 0 Sig: Take 1 tablet by mouth once daily NOELLE Inhibitors Protocol Failed - 09/11/2021 7:18 AM Failed - Serum potassium on record in past 12 months No results found for: POTASSIUM, POCTK Failed - GFR on record in past 12 months No results found for: GFRNA Passed - Blood pressure on record in past 12 months Clinician-entered: BP Readings from Last 3 Encounters: 07/27/21 134/82 06/10/21 124/80 12/08/20 134/70 Patient-entered: No data recorded Passed - No positive test in the past 12 months or most recent test was negative Passed - Visit with relevant provider in past 12 months or upcoming 90 days Recent Visits Date Type Provider Dept 07/27/21 Office Visit Darcie Jacobs, PAC [facility] [place] 06/10/21 Office Visit Darcie Jacobs, PAC [facility] [place] 12/08/20 Office Visit Darcie Jacobs, [facility] [place] Showing recent visits within past 365 days [...] mouth once daily Diuretics Protocol Failed - 09/11/2021 7:18 AM Failed - Serum potassium on record in past 12 months No results found for: POTASSIUM, POCTK Failed - Serum sodium on record in past 12 months No results found for: SODIUM Failed - GFR on record in past 12 months No results found for: GFRNA Passed - Blood pressure on record in past 12 months Clinician-entered: BP Readings from Last 3 Encounters: 07/27/21 134/82 06/10/21 124/80 12/08/20 134/70 Patient-entered: No data recorded Passed - Visit with relevant provider in past 12 months or upcoming 90 days Recent Visits Date Type Provider Dept 07/27/21 Office Visit Darcie Jacobs, [facility] [place] 06/10/21 Office Visit Darcie Jacobs, LAURA [facility] [place] 12/08/20 Office Visit Darcie Jacobs, LAURA [facility] [place] Showing recent visits within past 365 days and meeting all other requirements Future Appointments No visits were found meeting these conditions. Showing future appointments within next 90 days and meeting all other requirements ASSISTANT documented in this encounter Plan of Treatment Upcoming Encounters Date Type Department Care Team (Late st Contact Info) Description 07/15/2025 10:15 AM SEO ASSISTANT Office Visit [facility] - Primary Care - [place] [address] [place] [address] Darcie Jacobs PAC [address] [place] [address] 08/17/2025 11:00 AM SEO ASSISTANT Office Visit [facility] Medical [facility] - Endocrinology - [place] [address] [place] [phone] Lawrence Thompson MD [address] [phone] documented as of this encounter Visit Diagnoses Not on filedocumented in this encounter Additional Health Concerns Assessment Noted Time PHQ-9 Depression Total Score: 0 12/09/19 21 1:00 PM CDT documented as of this encounter Care Teams Identity Management Consultant Relationship Specialty Start Date End Date Darcie Jacobs PAC [address] [place] [address] PCP - General Physician Clerk Checker 12/08/20 Lawrence Thompson MD [address] [address] Consulting Physician Endocrinology 11/02/23 documented as of this encounter
--- OUTSIDE RECORDS SUMMARY | 2025-04-10 18:43 | XMS_ITS | Encounter Summary ---
Author Organization [facility] Address [address] [facility] [address] Phone Care Team Providers Care Pipe Straightener Name Role Phone Darcie Jacobs PAC Primary Care Pro vider Lawrence Thompson MD Unavailable Reason for Visit * Reason Comments Medication Refill Encounter Details Date Type Department Care Team (Late st Contact Info) Description 12/10/2023 Refill [facility] - Internal Medicine - [place] [address] [place] [address] Darcie Jacobs, PAC [address] [place] [address] Medication Refill Social History Tobacco Use Types Packs/Day Years Used Date Smoking Tobacco: Former Cigarettes Q uit: 02/11/2008 Smokeless Tobacco: Never Alcohol Use Standard Drinks/Week Comments Yes 0 (1 standard drink = 0.6 oz pur e alcohol) socially [facility] Utilities Answer Date Recorded In the past 12 months has [employer], gas, oil, or water [employer] threatened to shut off services in your home? No 12/13/2023 Social Connection and Isolation Panel Answer Date Recorded In a typical week, how many times do you talk on the phone with family, friends, or neighbors? Once a week 12/13/2023 How often do you get togethe r with friends or relatives? Patient declined 12/13/2023 How often do you attend chur or worship services? More than 4 times per year 12/13/2023 Do you belong to any clubs o r organizations such as gnosticism groups, unions, fraternal or athletic groups, or [...] Total Score - Questions 1-9 10 12/2021 [facility] - Occupational Stress Questionnaire Answer Date Recorded [...] place to sleep or slept in a long-term (including now)? No 12/13/2023 Education Answer Date [...] on file documented as of this encounter Functional Status * AUDIT-C Score Answer Date of Assessment Author 1 12/13/2023 3:59 AM CDT [facility], System Background * Q1: How often do you have a drink containing alcohol? Answer Date of Assessment Author Monthly or less 12/13/2023 3:59 AM CDT [facility], System Background * Q2: How many drinks containing alcohol do you have on a typical day when you are drinking? Answer Date of Assessment Author 1 or 2 12/13/2023 3:59 AM CDT [facility], System Background * Q3: How often do you have six or more drinks on one occasion? Answer Date of Assessment Author Never 12/13/2023 3:59 AM CDT [facility], System Background documented as of this encounter Miscellaneous Notes * Telephone Encounter - Hannah Vogel RN - 12/11/2023 10:13 AM CDT Medication(s) refilled and signed per [facility] Chronic Medication Refill Standing Order for Pediatricand Adult Patients. Requested Prescriptions Pending Prescriptions Disp Refills triamterene-hydrochlorothiazide (MAXZIDE) 37.5-25 MG Tablet [Pharmacy Med Name: Triamterene-HCTZ 37.5-25 MG Oral Tablet] 90 Tablet 0 Sig: Take 1 tablet by mouth once daily Diuretics Protocol Passed - 12/10/2023 4:50 PM Passed - Serum potassium on record in past 12 months POTASSIUM Date Value Ref Range Status 12/13/2022 4.0 3.5 - 5.1 mmol/L Final Passed - Serum sodium on record in past 12 months SODIUM Date Value Ref Range Status 12/13/2022 136 136 - 144 mmol/L Final Passed - Blood pressure on record in past 12 months Clinician-entered: BP Readings from Last 3 Encounters: 11/13/23 102/67 02/15/23 92/62 12/13/22 112/74 Patient-entered: No data recorded Passed - Visit with relevant provider in past 12 months or upcoming 90 days Recent Visits Date Type Provider Dept 02/15/23 Office Visit Darcie Jacobs, LAURA [facility] 02/09/23 Office Visit Darcie Jacobs PAC [facility] 12/13/22 Office Visit Darcie Jacobs PAC [facility] [place] Showing recent visits within past 365 days and meeting all other requirements Future Appointments Date Type Provider Dept 12/14/23 Appointment Darcie Jacobs PAC [facility] [place] Showing future appointments within next 90 days and meeting all other requirements Passed - GFR on record in past 12 months GFR, EST. NONAFRICAN Date Value Ref Range Status 12/13/2022 >60 >=60 Final documented in this encounter Plan of Treatment Upcoming Encounters Date Type Department Care Team (Late st Contact Info) Description 07/15/2025 10:15 AM FITNESS LEADER Office Visit [facility] - Primary Care - [place] [address] [place] [address] Darcie Jacobs, PAC [address] [place] [address] 08/17/2025 11:00 AM FITNESS LEADER Office Visit [facility] - Endocrinology - [place] [address] [place] [address] Lawrence Thompson MD [address] [address] documented as of this encounter Visit Diagnoses Not on filedocumented in this encounter Additional Health Concerns Assessment Noted Time PHQ-9 Depression Total Score: 10 022 8:00 AM CDT documented as of this encounter Care Teams Pipe Straightener Relationship Specialty Start Date End Date Darcie Jacobs PAC [address] [place] [address] PCP - General Physician Addictions Recovery Specialist 12/08/20 Lawrence Thompson MD [address] [address] Consulting Physician Endocrinology 11/02/23 documented as of this encounter
--- OUTSIDE RECORDS SUMMARY | 2025-04-10 18:43 | XMS_ITS | Encounter Summary ---
Author Organization [facility] Address [address] [place] [address] Phone Care Team Providers Care Police Commissioner Name Role Phone Darcie Jacobs PAC Primary Care Pro vider Lawrence Thompson MD Unavailable Reason for Visit * Reason Comments Medication Refill Encounter Details Date Type Department Care Team (Late st Contact Info) Description 03/24/2021 [facility]ill [facility] - [place] [address] [place] [address] Darcie Jacobs, PAC [address] [place] [address] Medication Refill Social History Tobacco Use Types [...] Telephone Encounter - Sonam Pappas RN - 03/24/2021 12:53 PM CDT Please review and sign. documented in this encounter Plan of Treatment Upcoming Encounters Date Type Department Care Team (Late st Contact Info) Description 07/15/2025 10:15 AM REPORT ANALYST Office Visit [facility] - Primary Care - [place] [address] [place] [address] Darcie Jacobs, PAC [address] [place] [address] 08/17/2025 11:00 AM REPORT ANALYST Office Visit [facility] Endocrinology - [place] [address] [place] [phone] Lawrence Thompson MD [address] [phone] documented as of this encounter Visit Diagnoses Not on filedocumented in this encounter Additional Health Concerns Assessment Noted Time PHQ-9 Depression Total Score: 0 12/09/19 21 1:00 PM CDT documented as of this encounter Care Teams Police Commissioner Relationship Specialty Start Date End Date Darcie Jacobs, PAC [address] [place] [address] PCP - General Physician Wrister 12/08/20 Lawrence Thompson MD [address] [phone] Consulting Physician Endocrinology 11/02/23 documented as of this encounter
--- OUTSIDE RECORDS SUMMARY | 2025-04-10 18:43 | XMS_ITS | Encounter Summary ---
Author Organization [facility] Address [address] [facility] [place] [place] [address] Phone Care Team Providers Care Fuel Cell Repairer Name Role Phone Darcie Jacobs PAC Primary Care Pro vider Lawrence Thompson MD Unavailable Reason for Visit * Reason Comments Medication Refill Encounter Details Date Type Department Care Team (Late st Contact Info) Description 11/21/2023 [facility]ill [facility] - Internal Medicine - [place] [address] [place] [address] Darcie Jacobs, PAC [address] [place] [address] Medication Refill Social History Tobacco Use Types Packs/Day Years Used Date Smoking Tobacco: Former Cigarettes Q uit: 02/11/2008 Smokeless Tobacco: Never Alcohol Use Standard Drinks/Week Comments Yes 0 (1 standard drink = 0.6 oz pur e alcohol) socially PHQ-2 Answer Date Recorded Total Score - Questions 1-9 10 12/2021 Education Answer Date Recorded What is the [...] Telephone Encounter - Hannah Vogel RN - 11/22/2023 9:05 AM CDT Medication(s) refilled and signed per [facility] Chronic Medication Refill Standing Order for Pediatricand Adult Patients. Requested Prescriptions Pending Prescriptions Disp Refills lisinopril (PRINIVIL, ZESTRIL) 20 MG Tablet [Pharmacy Med Name: Lisinopril 20 MG Oral Tablet] 90 Tablet 0 Sig: Take 1 tablet by mouth once daily NOELLE Inhibitors Protocol Passed - 11/21/2023 2:26 PM Passed - Serum potassium on record [...] Provider Dept 02/15/23 Office Visit Darcie Jacobs, PAC [facility] 02/09/23 Office Visit Darcie Jacobs, PAC [facility] [place] 12/13/22 Office Visit Darcie Jacobs, PAC [facility] [place] Showing recent visits within past 365 days and meeting all other requirements Future Appointments Date Type Provider Dept 12/14/23 Appointment Darcie Jacobs, PAC [facility] [place] Showing future appointments within next 90 days and meeting all other requirements Passed - GFR on record in past 12 months GFR, EST. NONAFRICAN Date Value Ref Range Status 12/13/2022 >60 >=60 Final triamterene-hydrochlorothiazide (MAXZIDE) 37.5-25 MG Tablet [Pharmacy Med Name: Triamterene-HCTZ 37.5-25 MG Oral Tablet] 90 Tablet 0 Sig: Take 1 tablet by mouth once daily Diuretics Protocol Passed - 11/21/2023 2:26 PM Passed - Serum potassium on record [...] Provider Dept 02/15/23 Office Visit Darcie Jacobs, PAC [facility] [place] 02/09/23 Office Visit Darcie Jacobs, PAC [facility] [place] 12/13/22 Office Visit Darcie Jacobs, PAC [facility] [place] Showing recent visits within past 365 days and meeting all other requirements Future Appointments Date Type Provider Dept 12/14/23 Appointment Darcie Jacobs, PAC [facility] [place] Showing future appointments within next 90 days and meeting all other requirements Passed - GFR on record in past 12 months GFR, EST. NONAFRICAN Date Value Ref Range Status 12/13/2022 >60 >=60 Final documented in this encounter Plan of Treatment Upcoming Encounters Date Type Department Care Team (Late st Contact Info) Description 07/15/2025 10:15 AM CIRCUS RIDER Office Visit [facility] - Primary Care - [place] [address] [place] [phone] Darcie Jacobs, PAC [address] [place] [address] 08/17/2025 11:00 AM CIRCUS RIDER Office Visit [facility] - Endocrinology - [place] [address] [place] [address] Lawrence Thompson MD [address] [address] documented as of this encounter Visit Diagnoses Not on filedocumented in this encounter Additional Health Concerns Assessment Noted Time PHQ-9 Depression Total Score: 10 022 8:00 AM CDT documented as of this encounter Care Teams Fuel Cell Repairer Relationship Specialty Start Date End Date Darcie Jacobs, PAC [address] [place] [address] PCP - General Physician Vice President Network 12/08/20 Lawrence Thompson MD [address] [address] Consulting Physician Endocrinology 11/02/23 documented as of this encounter
--- OUTSIDE RECORDS SUMMARY | 2025-04-10 18:43 | XMS_ITS | Encounter Summary ---
Author Organization [facility] Address [address] [place] [address] Care Team Providers Care Supervisor Assembling Name Role Phone Karson Rodriguez MD Primary Care Provider [phone] Darcie Jacobs Primary Care Prov ider Encounter Details Date Type Department Care Team (Late st Contact Info) Description 11/06/2022 Telephone [facility] [address] [place], [place] [id number] Celina Dickson RDMS Social History Tobacco Use Types Packs/Day Years Used Date Smoking Tobacco: Former Cigarettes 1 24 - 2007 Smokeless Tobacco: Never Alcohol Use Standard Drinks/Week Comments Yes 0 (1 standard drink = 0.6 oz pur e alcohol) Rarely AUDIT-C Answer Date Recorded Q1: How often do you have a drink containing alc ohol? 2-4 times a month 07/28/2022 Q2: How many drinks containi ng alcohol do you have on a typical day when you are drinking? 3 or 4 07/28/2022 Q3: How often do you have si x or more drinks on one occasion? 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
--- OUTSIDE RECORDS SUMMARY | 2025-04-10 18:44 | XMS_ITS | Clinical Summary ---
Author Organization [facility] Address [address] [place] [address] Phone Care Team Providers Care Manager Ct Name Role Phone Darcie Jacobs Primary Care Pro vider Lawrence Thompson MD Unavailable Allergies Active Allergy Reactions Criticality Noted Date Comments Sulfa Antibiotics Rash,Other (see Comments) 03/2016 fever Medications omeprazole (PRILOSEC) 40 MG CAPSULE DELAYED RELEASE Take 40 mg by mouth daily. Active Multiple Vitamin (MULTI-VITAMIN ) Tablet Take 1 Tab by mouth daily. Active aspirin EC 81 MG Tablet Delayed Response Take 81 mg by mouth nightly. Active Alpha-Lipoic Acid 600 MG Capsule Alpha-Lipoic Acid 600 MG Oral Capsule QTY: 0 capsule Days: 0 Refills: 0 Written: 03/14/18 Patient Instructions: 800 mg daily 03/14/20 18 Active linaclotide (LINZESS) 290 MCG Capsule Linzess 290 MCG Oral Capsule QTY: 0 capsule Days: 0 Refills: 0 Written: 03/14/18 Patient Instructions: 03/14/20 18 Active Ursodiol 500 MG Tablet Take 1 Tablet by mouth 2 times daily. 11/27/19 22 Active Cholecalcifero l (VITAMIN D) 125 mcg Capsule Take 5,000 Units by mouth. Active Continuous Glucose Sensor (FreeStyle Reji 3 Sensor) MiscIndication s:Type 2 diabetes mellitus without complication, without long-term current use of insulin 1 Each by Does not apply route every 14 days. 6 Each 1 09/05/20 24 Active empagliflozin (JARDIANCE) 25 MG Tablet Take 1 Tablet by mouth daily. 90 Tablet 1 09/29/19 25 Active Tirzepatide (Mounjaro) 10 MG/0.5ML Solution Auto-injector 10 mg by Subcutaneous route once a week. 6 mL 01/02/20 25 Active atorvastatin (LIPITOR) 40 MG Tablet Take 1 tablet by mouth once daily 90 Tablet 03/18/20 25 Active atorvastatin (LIPITOR) 40 MG Tablet Take 1 Tablet by mouth daily. 90 Tablet 1 09/05/20 24 025 Discontinued Active Problems Problem Noted Date Diagnosed Date Hydronephrosis 12/15/2024 Primary biliary cholangitis 12/12/2021 Overview (06/14/2022): Followed by [facility]; Dr Bubba CORTÉS Type 2 diabetes mellitus 12/08/2020 Overview (12/08/2020): ENDO follows; Dr Guan Other hyperlipidemia 12/08/2020 Hypertension 12/08/2020 GERD (gastroesophageal reflux disease) Other irritable bowel syndrome 12/08/2020 Overview (12/08/2020): GI follows Dr Toth Low iron 12/08/2020 Anemia 12/08/2020 Elevated LFTs 12/08/2020 Well woman exam 12/08/2020 Overview (12/08/2020): [facility]IN T[facility]NER follows SKIN TANNER orders mammograms yearly Blood in stool 12/08/2020 Overview (12/08/2020): GI follows Has had colonoscopy H/O colonoscopy 12/08/2020 Overview (12/12/2021): GI follows Chronic pain of left knee 12/08/2020 Encounters Date Type Department Care Team Description 03/18/2025 Refill [facility] - [place] [address] [place] [address] Lawrence Thompson MD Medication Refill 02/13/2025 11:00 AM CDT Office Visit [facility] [address] [place] [address] Lawrence Thompson MD Type 2 diabetes mellitus without complication, without long-term current use of insulin (Primary Dx); Hypoglycemia; Medication dose changed Discharge Disposition: Discharged to home or Selfcare 02/11/2025 Travel 01/12/2025 10:15 AM CDT Telemedicine [facility] - Internal Medicine - [place] [address] [place] [address] Darcie Jacobs PAC Primary hypertension (Primary Dx) 01/11/2025 Travel 01/08/2025 10:02 AM CDT - 01/08/2025 11:59 PM CDT Hospital Encounter [facility] [address] [place] [address] Mike Claire, BELT CLEANER, CORPORATE MEETING PLANNER Discharge Disposition: Discharged to home or Selfcare from Last 3 Months Immunizations Immunization Administration Dates Next Due Covid-19, Mrna, Lnp-s, Pf, 1 00 Mcg Or 50 Mcg Dose (MODERNA) 01/10/2021 TD VACCINE 09/10/2000 TDAP Vaccine 05/05/2011 Td Vaccine (preservative free) 04/21/2011 Family History Medical History Relation Name Comments Cancer Brother small cell Heart Attack Father mild Heart Disease Father Hypertension Father Ovarian Cancer Maternal Aunt Heart Attack Mother Heart Disease Mother Hypertension Mother Ovarian Cancer Paternal Aunt Relation Name Status Comments Brother Father Alive Maternal Aunt Mother Paternal Aunt Social History Tobacco Use Types Packs/Day Years Used Date Smoking Tobacco: Former Cigarettes Q uit: 02/11/2008 Smokeless Tobacco: Never Tobacco Cessation:Counseling Given: Not Answered Alcohol Use Standard Drinks/Week Comments Yes 0 (1 standard drink = 0.6 oz pur e alcohol) socially [facility] Utilities Answer Date Recorded In the past 12 months has [employer], gas, oil, or water MAPPING threatened to shut off services in your home? No 12/15/2024 Social Connection and Isolation Panel Answer Date Recorded In a typical week, how many times do you talk on the phone with family, friends, or neighbors? Once a week 12/15/2024 How often do you get togethe r with friends or relatives? Once a week 12/15/2024 How often do you attend chur ch or baptist services? More than 4 times per year 12/15/2024 Do you belong to any clubs o r organizations such as buddhism groups, unions, fraternal or athletic groups, or school groups? No 12/15/2024 How often do you attend meet ings of the clubs or organizations you belong to? Never 12/15/2024 Are you , , di vorced, , never , or living with a partner? 12/15/2024 AUDIT-C Answer Date Recorded Q1: How often do you have a drink containing alc ohol? 2-4 times a month 12/15/2024 Q2: How many drinks containi ng alcohol do you have on a typical day when you are drinking? 1 or 2 12/15/2024 Q3: How often do you have si x or more drinks on one occasion? Never 12/15/2024 Overall Financial Resource Strain (CARDIA) Answe r Date Recorded How hard is it for you to pa y for the very basics like food, housing, medical care, and heating? Not hard at all 12/15/2024 PHQ-2 Answer Date Recorded Total Score - Questions 1-9 1 03/2025 [facility] - Occupational Stress Questionnaire Answer Date Recorded Do you feel stress - tense, restless, nervous, or anxious, or unable to sleep at night because your mind is troubled all the time - these days? Not at all 12/15/2024 Exercise Vital Sign Answer Date Recorde d On average, how many days pe r week do you engage in moderate to strenuous exercise (like a brisk walk)? 0 days 12/15/2024 On average, how many minutes do you engage in exercise at this level? 0 min 12/15/2024 Hunger Vital Sign Answer Date Recorded Within the past 12 months, y ou worried that your food would run out before you got the money to buy more. Never true 12/16/19 25 Within the past 12 months, t he food you bought just didn't last and you didn't have money to get more. Never true 12/15/2024 PRAPARE - Transportation Answer Date Re corded In the past 12 months, has l ack of transportation kept you from medical appointments or from getting medications? No 03/2025 In the past 12 months, has l ack of transportation kept you from meetings, work, or from getting things needed for daily living? No 12/15/2024 Housing Stability Vital Sign Answer Gregorio e [...] place to sleep or slept in a alf (including now)? No 12/13/2023 Housing Stability Vital Sign Answer Gregorio e Recorded In the last 12 months, was t here a time when you were not able to pay the mortgage or rent on time? No 12/15/2024 Number of Times Moved in the Last Year Not on fi le 12/15/2024 At any time in the past 12 m [facility], were you homeless or living in a alf (including now)? No 12/15/2024 Education Answer Date Recorded What is the [...] AM CDT Sexual Orientation Not on file Last Filed Vital Signs Vital Sign Reading Time Taken Comments Blood Pressure 126/80 02/13/2025 11:00 AM CDT Pulse 74 02/13/2025 11:00 AM CDT Temperature 36.3 C (97.4 F) 02/13/2025 11:00 AM CDT Respiratory Rate 22 02/13/2025 11:00 AM CDT Oxygen Saturation 97% 02/13/2025 11:00 AM CDT Inhaled Oxygen Concentration - - Weight 61.5 kg (135 lb 9.6 oz) 02/13/2025 11:00 AM CDT Height 162.6 cm (5' 4) 12/15/2024 11:16 AM CDT Body Mass Index 23.28 12/15/2024 11:16 AM CDT Plan of Treatment Upcoming Encounters Date Type Department Care Team (Late st Contact Info) Description 07/15/2025 10:15 AM THREAD SEPARATOR Office Visit [facility] - Primary Care - [place] [address] [place] [address] Darcie Jacobs, PAC [address] [place] [address] 08/17/2025 11:00 AM THREAD SEPARATOR Office Visit [facility] - Endocrinology - [place] [address] [place] [address] Lawrence Thompson MD [address] [address] Health Maintenance Due Date Last Done Comments Hepatitis B Immunization (1 of 3 - 19+ 3-dose series) 1986 Pneumococcal Immunization (50+ years) (1 of 2 - PCV) 1986 HPV/Cotest 1997 Cologuard 2012 Zoster Immunization (1 of 2) 2017 Td Immunization Every 10 Years (Adults With 1 Tdap) 05/05/2021 05/05/2011, 04/21/2011, 09/10/2000 SARS-COV-2 Immunization ( season) 2024 05/24/2022, 09/19/2021, 02/08/2021, Additional history exists Diabetes: Eye Exam 02/04/2025 02/05/2024, 02/05/2024 Influenza Immunization (#1) 2025 Immunochemical Fecal Occult Blood 06/09/2025 06/09/2024 Diabetes: Hemoglobin A1c 06/19/2025 025, 08/15/2024, 12/18/2023, Additional history exists Diabetes: Foot Exam 08/15/2025 08/15/2024 Mammogram 10/15/2025 10/15/2024, 09/10, 07/04/2022, Additional history exists Diabetes: Nephropathy Screening 12/18/2025 12/18/2024, 10/15/2024, 10/15/2024, Additional history exists Cervical Cancer Screening (CCS) 06/09/2027 Pap Smear 06/09/2027 06/09/2024 Colonoscopy 07/28/2032 07/28/2022, 07/28/2022 Colorectal Cancer Screening 07/28/2032 Respiratory Syncytial Virus (RSV) Immunization (Adult) (1 - 1-dose 75+ series) 2042 DTaP/Tdap/Td Immunization Discontinued 2010, 04/21/2011, 09/10/2000 Hepatitis C Virus (HCV) Screening Completed 12/18/2024 Human Papillomavirus (HPV) Immunization Aged Out No longer eligible based on patient's age to complete this topic Meningococcal Immunization (ACWY) Aged Out No longer eligible based on patient's age to complete this topic Rotavirus Immunization Aged Out No lo nger eligible based on patient's age to complete this topic Procedures Procedure Name Priority Date/Time Associated Diagnosis Comments CT UROGRAPHY WO/W CONTRAST Routine 01/08/2025 10:31 AM CDT Hydronephrosis, unspecified hydronephrosis type CMP (COMPREHENSIVE METABOLIC PANEL) Routine 12/18/2024 8:14 AM CDT Well adult exam HEMOGLOBIN A1C W/ ESTIMATED GLUCOSE Routine 12/18/2024 8:14 AM CDT Well adult exam HEPATITIS C ANTIBODY Routine 12/18/2024 8:14 AM CDT Need for hepatitis C screening test CHARLA SCREENING BILATERAL DIGITAL W CAD W LINH Routine 10/15/2024 7:28 AM THREAD SEPARATOR Breast cancer screening by mammogram PATHOLOGY CYTOLOGY SKIN TANNER 06/09/2024 12:00 AM CDT HM DILATED EYE EXAM 02/05/2024 1 2:00 AM CDT HM COLONOSCOPY 07/28/2022 12:00 AM THREAD SEPARATOR from Last 3 Months or Most Recently Relevant to Health Maintenance Results * CT UROGRAPHY WO/W CONTRAST (01/08/2025 10:31 AM CDT) Anatomical Region Laterality Modality , Abdomen N/A Computed Tomogra phy 01/12/2025 9:39 PM CDT Impressions 01/12/2025 9:42 PM CDT IMPRESSION: No renal stone or hydronephrosis was seen. No renal mass was seen. The ureters appear unremarkable. The bladder appears unremarkable Small lipoma of the right adrenal gland. Narrative 01/12/2025 9:42 PM CDT EXAM DESCRIPTION: CT UROGRAPHY WO/W CONTRAST REASON FOR STUDY: right hydronephrosis seen on US 10/23/24 and 11/2023 TECHNIQUE: Precontrast images of the abdomen. Abdomen and pelvis images with intravenous and without oral contrast using helical scanning technique with dynamic intravenous contrast injection. Corticomedullary, nephrographic, excretory phase images were acquired. Reconstructed coronal and sagittal MPR images reviewed. All images stored on PACS. Automated exposure control was used as a dose optimization technique for this examination. CONTRAST TYPE/DOSE: 100mL of IOPAMIDOL 76 % IV SOLN injected via Intravenous COMPARISON: None FINDINGS: URINARY TRACT: KIDNEYS: No identified significant cystic or solid masses. No calculi. Normal renal collecting systems. URETERS AND BLADDER: No hydroureter. No masses or mucosal abnormalities. ABDOMEN/PELVIS: LOWER CHEST: No significant pulmonary abnormalities. No effusion. LIVER: Normal size. No identified cystic or solid masses. GALLBLADDER: Removed BILE DUCTS: No intrahepatic or extrahepatic ductal dilatation. SPLEEN: Normal size. No focal lesions. PANCREAS: No identified cystic or solid masses. No significant calcifications. No adjacent inflammation or peripancreatic fluid collections. Pancreatic duct not dilated. ADRENALS: Small lipoma seen in the right adrenal gland. Left adrenal appears unremarkable GI: No dilated bowel loops. No obvious wall thickening. Normal appendix. No significant diverticular disease. PERITONEUM: No ascites or free air. RETROPERITONEUM: No mass or adenopathy. REPRODUCTIVE: No significant abnormality. Small fibroids of the uterus are suspected. VASCULATURE: No abdominal aortic aneurysm. Atherosclerotic disease is seen of the abdominal aorta diffusely. MUSCULOSKELETAL: No acute findings. OTHER: No other abnormality. THIS IS AN ELECTRONICALLY VERIFIED FINAL REPORT 01/12/2025 9:39 PM - Electronically signed by Bertram NOLAN: OVIDIO Report ID: [id number] Reading Location: [place] [address] Procedure Note Bertram Matamoros MD - 01/12/2025 EXAM DESCRIPTION: CT UROGRAPHY WO/W CONTRAST REASON FOR STUDY: right hydronephrosis seen on US 10/23/24 and 11/2023 TECHNIQUE: Precontrast images of the abdomen. Abdomen and pelvis images with intravenous and without oral contrast using helical scanning technique with dynamic intravenous contrast injection. Corticomedullary, nephrographic, excretory phase images were acquired. Reconstructed coronal and sagittal MPR images reviewed. All images stored on PACS. Automated exposure control was used as a dose optimization technique for this examination. CONTRAST TYPE/DOSE: 100mL of IOPAMIDOL 76 % IV SOLN injected via Intravenous COMPARISON: None FINDINGS: URINARY TRACT: KIDNEYS: No identified significant cystic or solid masses. No calculi. Normal renal collecting systems. URETERS AND BLADDER: No hydroureter. No masses or mucosal abnormalities. ABDOMEN/PELVIS: LOWER CHEST: No significant pulmonary abnormalities. No effusion. LIVER: Normal size. No identified cystic or solid masses. GALLBLADDER: Removed BILE DUCTS: No intrahepatic or extrahepatic ductal dilatation. SPLEEN: Normal size. No focal lesions. PANCREAS: No identified cystic or solid masses. No significant calcifications. No adjacent inflammation or peripancreatic fluid collections. Pancreatic duct not dilated. ADRENALS: Small lipoma seen in the right adrenal gland. Left adrenal appears unremarkable GI: No dilated bowel loops. No obvious wall thickening. Normal appendix. No significant diverticular disease. PERITONEUM: No ascites or free air. RETROPERITONEUM: No mass or adenopathy. REPRODUCTIVE: No significant abnormality. Small fibroids of the uterus are suspected. VASCULATURE: No abdominal aortic aneurysm. Atherosclerotic disease is seen of the abdominal aorta diffusely. MUSCULOSKELETAL: No acute findings. OTHER: No other abnormality. THIS IS AN ELECTRONICALLY VERIFIED FINAL REPORT 01/12/2025 9:39 PM - Electronically signed by Bertram NOLAN: OVIDIO Report ID: [id number] Reading Location: [place] [address] IMPRESSION: No renal stone or hydronephrosis was seen. No renal mass was seen. The ureters appear unremarkable. The bladder appears unremarkable Small lipoma of the right adrenal gland. Mike Claire BELT CLEANER, CORPORATE MEETING PLANNER IMG CT ORDERABLES Madeline gerry Result * HEMOGLOBIN A1C W/ ESTIMATED GLUCOSE (12/18/2024 8:14 AM CDT) [facility] HGB-A1C 5.1 4.0 - 6.0 % 12/18/2024 5:15 PM CDT [facility] Est Average Glucose 99.7 mg/dL 12/18/2024 5:15 PM CDT [facility] Blood Venipuncture / Unknown 12/18/2024 8:14 AM CDT 12/18/2024 8:14 AM CDT Narrative [facility] - 12/18/2024 5:15 PM CDT HEMOGLOBIN A1C: DIABETIC PATIENTS: WELL-CONTROLLED: 6.2 - 7.0 INTERMEDIATE WELL-CONTROLLED: 7.0 - 9.0 POORLY-CONTROLLED: >9.0 Specimens containing greater than 5% of Hemoglobin F may result in lower than expected % HbA1C results. Darcie Jacobs PAC CHEMISTRY ORDERAB LES Final Result [facility] [address] [place] [address] * HEPATITIS C ANTIBODY (12/18/2024 8:14 AM CDT) [facility] hepatitis C antibody 0.12 <1 S/CO 12/18/2024 11:55 PM CDT [facility] Comment: Signal/Cutoff ratio < 0.79 is Nondetected Signal/Cutoff ratio 0.80-0.99 is Grayzone Signal/Cutoff ratio > 0.99 is Detected Supplemental assays are recommended if signal/cutoff ratio is >/=1.00. Signal/cutoff ratio result >/= 5.00 is 97% predictive of positivity for recombinant immunoblot assay (RIBA) and will be reported to the [place] Department of Public Health as required. Blood Venipuncture / Unknown 12/18/2024 8:14 AM CDT 12/18/2024 8:14 AM CDT Darcie Jacobs PAC CHEMISTRY ORDERAB LES Final Result [facility] [address] [place] [address], * (ABNORMAL) CMP (COMPREHENSIVE METABOLIC PANEL) (12/18/2024 8:14 AM CDT) SODIUM 143 136 - 145 mmol/L 12/18/2024 5:28 PM CDT [facility] POTASSIUM 3.5 3.5 - 5.1 mmol/L 12/18/2024 5:28 PM CDT [facility] CHLORIDE 103 98 - 107 mmol/L 12/18/2024 5:28 PM CDT [facility] CO2, VENOUS 31(H) 22 - 30 mmol/L 12/18/2024 5:28 PM CDT [facility] ANION GAP 12.5 <18.0 mmol/L 12/18/2024 5:28 PM CDT [facility] GLUCOSE 74 70 - 99 mg/dL 12/18/2024 5:28 PM CDT [facility] BUN 10 10 - 20 mg/dL 12/18/2024 5:28 PM CDT [facility] CREATININE, BLOOD 0.66 0.60 - 1.00 mg/dL 12/18/2024 5:28 PM CDT [facility] BUN/CREATININE RATIO 15 12 - 20 ratio 12/18/2024 5:28 PM CDT [facility] TOTAL PROTEIN 7.9 6.0 - 8.0 g/dL 12/18/2024 5:28 PM CDT [facility] ALBUMIN 4.5 3.5 - 5.0 g/dL 12/18/2024 5:28 PM CDT [facility] A/G RATIO 1.3 1.0 - 2.2 12/18/2024 5:28 PM CDT [facility] CALCIUM 9.9 8.7 - 10.5 mg/dL 12/18/2024 5:28 PM CDT [facility] T BILI 0.4 0.2 - 1.2 mg/dL 12/18/2024 5:28 PM CDT [facility] SGOT (AST) 21 <43 U/L 12/18/2024 5:28 PM CDT [facility] SGPT (ALT) 15 <56 U/L 12/18/2024 5:28 PM CDT [facility] ALKALINE PHOSPHATASE 64 40 - 150 U/L 12/18/2024 5:28 PM CDT [facility] IS THE PATIENT REQUIRED TO BE FASTING? No 12/18/2024 5:28 PM CDT [facility] GFR, ESTIMATED >60 >=60 12/18/2024 5:28 PM CDT [facility] Comment: Creatinine Clearance is the preferred criteria for selecting drug dose adjustments in renally impaired patients. The GFR is provided as additional pertinent clinical information. GFR is reported in mL/min/1.73 sq m. Calculation based on the Chronic Kidney Disease Epidemiology Collaboration (CKD- EPI) equation refit without adjustment for race. GFR, EST. >60 >=60 025 5:28 PM CDT [facility] GFR, EST. NONAFRICAN >60 >=60 12/18/2024 5:28 PM CDT [facility] Blood Venipuncture / Unknown 12/18/2024 8:14 AM CDT 12/18/2024 8:14 AM CDT us Darcie Jacobs PAC CHEMISTRY ORDERAB LES Final Result [facility] [address] [place] [address] * CHARLA SCREENING BILATERAL DIGITAL W CAD W LINH (10/15/2024 7:28 AM THREAD SEPARATOR) Anatomical Region Laterality Modality breast Bilateral Mammography 10/15/2024 9:37 AM THREAD SEPARATOR Narrative 10/16/2024 8:41 AM THREAD SEPARATOR - CHARLA SCREENING BILATERAL DIGITAL W CAD W LINH BILATERAL DIGITAL SCREENING MAMMOGRAM 3D/2D WITH CAD WITH MEDIOLATERAL OBLIQUE CRANIOCAUDAL: 10/15/2024 The study was acquired using digital technology and interpreted from soft copy. Current study was also evaluated with ICAD version 7.2. 2D digital mammographic views, as well as 3D digital tomosynthesis were performed in the CC and MLO projections. CLINICAL: Routine screening. Patient has no complaints. Patient reports 50 pound weight loss since last mammogram. No personal history of cancer. Paternal and maternal aunt had ovarian cancer. COMPARISONS: Comparison is made to exams dated: 07/04/2022, 09/26/2023, and [facility] BREAST TISSUE:There are scattered areas of fibroglandular density. FINDINGS: No significant masses, calcifications, or other findings are seen in either breast. There has been no significant interval change. IMPRESSION: NEGATIVE There is no mammographic evidence of malignancy. A 1 year screening mammogram is recommended. A letter will be sent to the patient with these results. The patient will be entered into a reminder system with a target due date of 1 year for her next screening exam. Electronically signed by: Joanna rodríguez/tigre:10/15/2024 11:12:02 Corrections Corporal(s): RT Elodia(R)(M), [facility] letter sent: Normal Exam Reading location: [place] Mammogram BI-RADS: Category 1: Negative Procedure Note Joanna Maria MD - 10/16/2024 - CHARLA SCREENING BILATERAL DIGITAL W CAD W LINH BILATERAL DIGITAL SCREENING MAMMOGRAM 3D/2D WITH CAD WITH MEDIOLATERAL OBLIQUE CRANIOCAUDAL: 10/15/2024 The study was acquired using digital technology and interpreted from soft copy. Current study was also evaluated with ICAD version 7.2. 2D digital mammographic views, as well as 3D digital tomosynthesis were performed in the CC and MLO projections. CLINICAL: Routine screening. Patient has no complaints. Patient reports 50 pound weight loss since last mammogram. No personal history of cancer. Paternal and maternal aunt had ovarian cancer. COMPARISONS: Comparison is made to exams dated: 07/04/2022, 09/26/2023, and 06/10/2021 [facility]. BREAST TISSUE:There are scattered areas of fibroglandular density. FINDINGS: No significant masses, calcifications, or other findings are seen in either breast. There has been no significant interval change. IMPRESSION: NEGATIVE There is no mammographic evidence of malignancy. A 1 year screening mammogram is recommended. A letter will be sent to the patient with these results. The patient will be entered into a reminder system with a target due date of 1 year for her next screening exam. Electronically signed by: Joanna rodríguez/tigre:10/15/2024 11:12:02 Corrections Corporal(s): RT Elodia(R)(M), [facility] letter sent: Normal Exam Reading location: [place] Mammogram BI-RADS: Category 1: Negative Darcie Jacobs PAC IMG MAMMO ORDERAB LES Final Result * PATHOLOGY CYTOLOGY SKIN TANNER (06/09/2024 12:00 AM CDT) 06/09/2024 us Provider Scan PATHOLOGY/CYTOLOGY ORDERABLES Fi nal Result SCAN * HM DILATED EYE EXAM (02/05/2024 12:00 AM CDT) 02/05/2024 us Provider Scan PROCEDURE/MINOR SURGICAL ORDERAB LES Final Result SCAN * HM COLONOSCOPY (07/28/2022 12:00 AM THREAD SEPARATOR) 07/28/2022 us Not On File Provider PROCEDURE/MINOR SURGICAL OR DERABLES Final Result SCAN from Last 3 Months or Most Recently Relevant to Health Maintenance Insurance [facility] Advance Directives * Full Code (Latest Code Status on File) Date Activated Date Inactivated Comments 06/22/2016 5:58 AM 06/22/2016 12:42 PM CPR-Full Treatment: FULL ARREST: Attempt Resuscitation/CPR wit intubation and mechanical ventilation. PRE-ARREST: Use entire range of life support measures to stabilize the patient. Care Teams Manager Ct Relationship Specialty Start Date End Date Darcie Jacobs, LAURA [address] [place] [address] PCP - General Physician Community Relations Director 12/08/20 Lawrence Thompson MD [address] [id number] Consulting Physician Endocrinology 11/02/23
--- OUTSIDE RECORDS SUMMARY | 2025-04-10 18:44 | XMS_ITS | Patient Health Record ---
Author Organization [facility] Address [address] [address] [place] [address] Care Team Providers Care [employer] Manager Name Role Phone RACHANA RAUSCH Unavailable [phone] Reason For Referral No Information Plan Of Treatment No Information Insurance Providers Payer Name Payer Address Payer Phone Subscriber Number Group Number Insured Name Patient Relationship to Insured Coverage Start Date Coverage End Date [employer] [address] [place] [phone] [id number] Elaina Rosales Self - patient is the insured 7
[2025-04-10 18:55] LABS: EDUAAPPEAR Cloudy; EDUABILI Negative (Negative); EDUABLOOD 3+ (Negative); EDUACOLOR1 Yellow; EDUAGLUCOSE 2+ (Negative); EDUAKETONE Negative (Negative); EDUALEUKO 2+ (Negative); EDUANITRATE Negative (Negative); EDUAPH 7.0; EDUAPROTEIN 3+ (Negative); EDUASPGRAVITY 1.020; EDUAUROBILI 0.2
== END 2025-04-10 18:58 | disposition home or self-care (01) ==
PROVIDERS: Emergency Provider Nurse Practitioner Family; PCP Physician Assistant
DX: N39.0 Urinary tract infection, site not specified (principal); E11.9 Type 2 diabetes mellitus without complications
CPT/HCPCS: 81003; 87086; 99203; G0463